=== PATIENT | female | born 1935 | race Caucasian/White ===

== ENCOUNTER 2016-11-18 09:36 | Outpatient (CLI) | payer MEDICARE, OTHER ==
--- NOTE | 2016-11-18 11:19 | PRG ---
DATE OF SERVICE: 11/18/2016 HISTORY: Ms. Eula Mallory is a very pleasant 81-year-old who presents to the Wound Center for ev aluation of ulcerations of the right and left lower legs. The patient was recently admitted to [facility] where she underwent surgery for a left femoral neck fracture. The pat ient was subsequently discharged to [place]. Since the patient's last visit, Ms. Mallory has been discharged from [place] and she is now residing at [facility]. Ms. Mallory has no complaints tod ay. She denies any fever or chills. PHYSICAL EXAMINATION: VITAL SIGNS: Temperature 97.6, pulse 72, respirations 18, blood pressure 97/54. EXTREMITIES: An ulceration of the right lower leg is present which measures approximately 1.7 x 0.6 cm. An ulceration is present over the left lower leg which measures approximately 2.1 x 0.9 cm. T he dimensions of these wounds at the time of the patient's last visit were 2.0 x 1.4 cm and 3.0 x 1. 0 cm, respectively. Granulation tissue is present within the margins of each wound. No purulent dr maryse is associated with either wound. No cellulitis of the right or left lower extremity is appre ciated. No maceration of the skin of the right or left lower extremity is present. No significant edema of the right or left lower extremity is present on exam today. ASSESSMENT AND PLAN: 1. Varicose veins with ulcers and inflammation. The patient has completed courses of treatment wit h Apligraf for her ulcerations. The patient has also undergone venous ablation on the right and on the left by Dr. Chandler Meyer. Dressing changes of Adaptic, Kerlix, and Kavin bandages will be continued 2 times per week after cleansing and irrigation with the assistance of Home Health at [facility]. I will see Ms. Mallory again in 3 weeks. 2. Gastroesophageal reflux disease. 3. History of erythema nodosum. 4. Scoliosis.
[2016-11-18] MEDS ORDERED: Sodium Chloride 0.9% 15 ML NEB ONE (16:19)
== END 2016-11-18 09:37 | disposition home or self-care (01) ==
LOC: WCC 09:36
PROVIDERS: ATTEND Family Medicine
DX: I83.209 Varicose veins of unspecified lower extremity with both ulcer of unspecified site and inflammation (principal); K21.9 Gastro-esophageal reflux disease without esophagitis; M41.9 Scoliosis, unspecified
CPT/HCPCS: 97602; A4218

== ENCOUNTER 2016-12-09 09:23 | Outpatient (CLI) | payer MEDICARE, OTHER ==
--- NOTE | 2016-12-09 12:14 | PRG ---
DATE OF SERVICE: 12/09/2016 HISTORY: Ms. Eula Mallory is a very pleasant 81-year-old who presents to the Wound Center for ev aluation of ulcerations of the right and left lower legs. The patient was recently admitted to [facility] where she underwent surgery for left femoral neck fracture. The patie nt was subsequently discharged to [place]. After discharge from [place], the patient has been r esiding at [facility]. Ms. Mallory has no complaints today. She denies any fever or chills. PHYSICAL EXAMINATION: VITAL SIGNS: Temperature 97.5, pulse 60, respirations 18, blood pressure 122/57. EXTREMITIES: An ulceration is present over the left lower leg which measures approximately 2.7 x 0. 8 cm. The dimensions of this wound at the time of the patient's last visit were approximately 2.1 x 0.9 cm. Four small ulcerations are present over the right lower leg. Granulation tissue is presen t within the margins of each wound. No purulent drainage is associated with any of the wounds. No cellulitis of the right or left lower extremity is appreciated. No maceration of the skin of the ri ght or left lower extremity is present. A dorsalis pedis pulse is palpable on the right and on the left. No significant edema of the right or left lower extremity is present on exam today. ASSESSMENT AND PLAN: 1. Varicose veins with ulcers and inflammation. The patient has completed courses of treatment wit h Apligraf for her ulcerations. The patient has also undergone venous ablation on the right and on the left by Dr. Chandler Meyer. Dressing changes of Adaptic, Kerlix, and Kavin bandages will be continued 2 times per week after cleansing and irrigation with the assistance of Home Health at [facility]. I will see Ms. Mallory again in two weeks. 2. Gastroesophageal reflux disease. 3. History of erythema nodosum. 4. Scoliosis.
[2016-12-09] MEDS ORDERED: Sodium Chloride 0.9% 15 ML NEB ONE (17:30)
[2016-12-09] MEDS ORDERED: Lidocaine 2% Jelly 5 ML TUBE ONE (17:30)
== END 2016-12-09 09:24 | disposition home or self-care (01) ==
LOC: WCC 09:23
PROVIDERS: ATTEND Family Medicine
DX: I83.209 Varicose veins of unspecified lower extremity with both ulcer of unspecified site and inflammation (principal); K21.9 Gastro-esophageal reflux disease without esophagitis; M41.9 Scoliosis, unspecified
CPT/HCPCS: 97602; A4218

== ENCOUNTER 2017-01-13 09:26 | Outpatient (CLI) | payer MEDICARE, OTHER ==
--- NOTE | 2017-01-13 11:01 | PRG ---
DATE OF SERVICE: 01/13/2017 HISTORY: Ms. Eula Mallory is a very pleasant 81-year-old who presents to the Wound Center for ramón luation of ulcerations of the right and left lower legs. The patient was recently admitted to [facility] where she underwent surgery for left femoral neck fracture. The patient was subsequently discharged to [place]. After discharge from [place], the patient has been resid ing at [facility]. Ms. Mallory has no complaints today. She denies any fever or chills. PHYSICAL EXAMINATION: VITAL SIGNS: Temperature 97.8, pulse 65, respirations 16, blood pressure 118/58. EXTREMITIES: An ulceration is present over the left lower leg, which measures approximately 2.2 x 1. 0 cm. The dimensions of the wound at the time of the patient's last visit were approximately 2.2 x 0 .8 cm. Multiple small ulcerations are present over the right lower leg. Granulation tissue is prese nt within the margins of each wound. No purulent drainage is associated with any of the wounds. No cellulitis of the right or left lower extremity is present. No maceration of the skin of the right o r left lower extremity is present. A dorsalis pedis pulse is palpable on the right and on the left. No significant edema of the right or left lower extremity is present on exam today. ASSESSMENT AND PLAN: 1. Varicose veins with ulcers and inflammation. The patient has completed courses of treatment with Apligraf for her ulcerations. The patient has also undergone venous ablation on the right and on left by Dr. Chandler Meyer. Dressing changes of Adaptic, Kerlix, and Kavin bandages will be continued 2 t imes per week after cleansing and irrigation with the assistance of Home Health at [facility]. I w ill see Ms. Mallory again in two weeks. 2. Gastroesophageal reflux disease. 3. History of erythema nodosum. 4. Scoliosis.
[2017-01-13] MEDS ORDERED: Sodium Chloride 0.9% 15 ML NEB ONE (17:21)
== END 2017-01-13 09:27 | disposition home or self-care (01) ==
LOC: WCC 09:26
PROVIDERS: ATTEND Family Medicine
DX: I83.209 Varicose veins of unspecified lower extremity with both ulcer of unspecified site and inflammation (principal); K21.9 Gastro-esophageal reflux disease without esophagitis; M41.9 Scoliosis, unspecified; Z87.2 Personal history of diseases of the skin and subcutaneous tissue
CPT/HCPCS: 97602; A4218

== ENCOUNTER 2017-01-27 09:45 | Outpatient (CLI) | payer MEDICARE, OTHER ==
--- NOTE | 2017-01-27 12:06 | PRG ---
DATE OF SERVICE: 01/27/2017 HISTORY: Ms. Eula Mallory is a very pleasant 81-year-old who presents to the Wound Center for ramón luation of ulcerations of the right and left lower legs. The patient was recently admitted to [facility] where she underwent surgery for left femoral neck fracture. The patient was subsequently discharged to [place]. After discharge from [place] the patient has been residi ng at [facility]. The patient has no complaints today. She denies any fever or chills. PHYSICAL EXAMINATION: VITAL SIGNS: Temperature 98.0, pulse 63, respirations 17, blood pressure 118/58. EXTREMITIES: An ulceration is present over the left lower leg which measures approximately 2.0 x 0.9 cm. The dimensions of the wound at the time of the patient's last visit were approximately 2.2 x 1. 0 cm. Two small ulcerations are present over the right lower leg. Granulation tissue is present wit hin the margins of each wound. No purulent drainage is associated with any of the wounds. No cellul itis of the right or left lower extremity is present. No maceration of the skin of the right or left lower extremity is present. No significant edema of the right or left lower extremity is present on exam today. ASSESSMENT AND PLAN: 1. Varicose veins with ulcers and inflammation. The patient has completed courses of treatment with Apligraf for her ulcerations. The patient has also undergone venous ablation on the right and on left by Dr. Chandler Meyer. Dressing changes of Adaptic, 4 x 4's, Kerlix, and Kavin bandages will be cont inued 2 times per week after cleansing and irrigation with the assistance of Home Health at [facility]. I will see Ms. Mallory are again in 4 weeks. 2. Gastroesophageal reflux disease. 3. History of erythema nodosum. 4. Scoliosis.
[2017-01-27] MEDS ORDERED: Sodium Chloride 0.9% 15 ML NEB ONE (21:15)
== END 2017-01-27 09:46 | disposition home or self-care (01) ==
LOC: WCC 09:45
PROVIDERS: ATTEND Family Medicine
DX: I83.228 Varicose veins of left lower extremity with both ulcer of other part of lower extremity and inflammation (principal); I83.218 Varicose veins of right lower extremity with both ulcer of other part of lower extremity and inflammation; L97.829 Non-pressure chronic ulcer of other part of left lower leg with unspecified severity; L97.819 Non-pressure chronic ulcer of other part of right lower leg with unspecified severity; K21.9 Gastro-esophageal reflux disease without esophagitis; M41.9 Scoliosis, unspecified; Z87.2 Personal history of diseases of the skin and subcutaneous tissue
CPT/HCPCS: 29581; A4218

== ENCOUNTER 2017-02-24 09:18 | Outpatient (CLI) | payer MEDICARE, OTHER ==
--- NOTE | 2017-02-24 11:55 | PRG ---
DATE OF SERVICE: 02/24/2017 HISTORY: Ms. Eula Mallory is a very pleasant 82-year-old who presents to the Wound Center for ramón luation of ulcerations of the right and left lower legs. The patient was previously admitted to [facility] where she underwent surgery for a left femoral neck fracture. The lyndsey ent was subsequently discharged to [place]. After discharge from [place], the patient has been r esiding at [facility]. Reports has no complaints today. She denies any fever or chills. OBJECTIVE: VITAL SIGNS: Temperature 97.6, pulse 64, respirations 18, blood pressure 161/83. EXTREMITIES: An ulceration is present over the left lower leg which measures approximately 1.9 x 0.9 cm. The dimensions of the wound at the time of the patient's last visit were approximately 2.0 x 0. 9 cm. Two small ulcerations are present over the right lower leg. Granulation tissue is present wit hin the margins of each wound. No purulent drainage is associated with any of the wounds. No cellul itis of the right or left lower extremity is present. No maceration of the skin of the right or left lower extremity is present. A dorsalis pedis pulse is palpable on the right. A posterior tibial pu lse is palpable on the left. Mild to moderate edema of the right and left lower extremities is prese nt on exam today. ASSESSMENT AND PLAN: 1. Varicose veins with ulcers and inflammation. The patient has completed courses of treatment with Apligraf for her ulcerations. The patient has also undergone venous ablation on the right and on left by Dr. Chandler Myeer. Dressing changes of Xeroform gauze, 4 x 4's, Kerlix, and Kavin bandages are t o be performed 2 times per week after cleansing and irrigation with the assistance of Home Health at [facility]. I will see Ms. Mallory again in four weeks. 2. Gastroesophageal reflux disease. 3. History of erythema nodosum. 4. Scoliosis.
== END 2017-02-24 09:19 | disposition home or self-care (01) ==
LOC: WCC 09:18
PROVIDERS: ATTEND Family Medicine
DX: I83.209 Varicose veins of unspecified lower extremity with both ulcer of unspecified site and inflammation (principal); K21.9 Gastro-esophageal reflux disease without esophagitis; M41.9 Scoliosis, unspecified; Z87.2 Personal history of diseases of the skin and subcutaneous tissue
CPT/HCPCS: 97602

== ENCOUNTER 2017-03-24 09:51 | Outpatient (CLI) | payer MEDICARE, OTHER ==
--- NOTE | 2017-03-24 11:42 | PRG ---
DATE OF SERVICE: 03/24/2017 HISTORY: Ms. Eula Mallory is a very pleasant 82-year-old who presents to the Wound Center for ramón luation of ulcerations of the right and left lower legs. The patient was previously admitted to [facility] where she underwent surgery for left femoral neck fracture. The patien t was subsequently discharged to [place]. After discharged from [place], the patient has been re siding at [facility] The patient has no complaints today. She denies any fever or chills. PHYSICAL EXAMINATION: VITAL SIGNS: Temperature 98.2, pulse 80, respirations 18, blood pressure 141/77. EXTREMITIES: Ulceration is present over the left lower leg which measures approximately 1.8 x 0.9 cm . The dimensions of the wound at the time of the patient's last visit were approximately 1.9 x 0.9 c m. Two small ulcerations are present over the right lower leg. No purulent drainage is associated w ith any of the wounds. No cellulitis of the right or left lower extremity is present. No maceration of the skin of the right or left lower extremity is present. Mild to moderate edema of the right an d left lower extremities is present on exam today. ASSESSMENT AND PLAN: 1. Varicose veins with ulcers and inflammation. The patient has completed courses of treatment with Apligraf for her ulcerations. The patient has also undergone venous ablation on the right and on left by Dr. Chandler Meyer. Dressing changes of Xeroform gauze, 4 x 4's, Kerlix, and Kavin bandages are t o be continued 2 times per week after cleansing and irrigation with the assistance of Home Health at [facility] Webril will be used as needed at the time of dressing changes. I will see Ms. Mallory again in four weeks. 2. Gastroesophageal reflux disease. 3. History of erythema nodosum. 4. Scoliosis.
== END 2017-03-24 09:52 | disposition home or self-care (01) ==
LOC: WCC 09:51
PROVIDERS: ATTEND Family Medicine
DX: I83.228 Varicose veins of left lower extremity with both ulcer of other part of lower extremity and inflammation (principal); K21.9 Gastro-esophageal reflux disease without esophagitis; M41.9 Scoliosis, unspecified
CPT/HCPCS: 97602

== ENCOUNTER 2017-04-21 09:28 | Outpatient (CLI) | payer MEDICARE, OTHER ==
--- NOTE | 2017-04-21 11:32 | PRG ---
DATE OF SERVICE: 04/21/2017 HISTORY: Ms. Eula Mallory is a very pleasant 82-year-old, who presents to the Wound Center for ev aluation of ulcerations of the right and left lower legs. The patient was previously admitted to [facility] where she underwent surgery for left femoral neck fracture. The patie nt was subsequently discharged to [place]. After discharge from [place], the patient has been re siding at [facility]. Ms. Mallory has no complaints today. She denies any fever or chills. PHYSICAL EXAMINATION: VITAL SIGNS: Temperature 97.4, pulse 60, respirations 17, and blood pressure 185/81. EXTREMITIES: An ulceration is present over the left lower leg, which measures approximately 1.6 x 0. 9 cm. The dimensions of the wound at the time of the patient's last visit were approximately 1.8 x 0 .9 cm. Only one small ulceration is present over the right lower leg, which measures approximately 0 .3 x 0.3 cm. No purulent drainage is associated with any of the wounds. No cellulitis of the right or left lower extremity is present. No maceration of the skin of the right or left lower extremity i s present. No significant edema of the right or left lower extremities is present on exam today. ASSESSMENT AND PLAN: 1. Varicose veins with ulcers and inflammation. The patient has completed courses of treatment with Apligraf for her ulcerations. The patient has also undergone venous ablation on the right and on left by Dr. Chandler Meyer. Dressing changes of Xeroform gauze, 4 x 4's or an ABD, Kerlix, and an Kavin b andage are to be continued 2 times per week after cleansing and irrigation with the assistance of [facility] [employer] at [facility]. For the ulceration of the right lower leg, the patient is to receive dress ing changes of Xeroform gauze and bordered gauze also 2 times per week after cleansing and irrigation with the assistance of [facility]. Orders will be transmitted to [facility] that an Kavin bandage m ay be utilized as needed for edema of the right lower extremity. I will see Ms. Mallory again in four weeks. 2. Gastroesophageal reflux disease. 3. History of erythema nodosum. 4. Scoliosis.
== END 2017-04-21 09:29 | disposition home or self-care (01) ==
LOC: WCC 09:28
PROVIDERS: ATTEND Family Medicine
DX: I83.209 Varicose veins of unspecified lower extremity with both ulcer of unspecified site and inflammation (principal); K21.9 Gastro-esophageal reflux disease without esophagitis; M41.9 Scoliosis, unspecified; Z87.2 Personal history of diseases of the skin and subcutaneous tissue
CPT/HCPCS: 97602

== ENCOUNTER 2017-05-19 09:24 | Outpatient (CLI) | payer MEDICARE, OTHER ==
--- NOTE | 2017-05-19 10:46 | PRG ---
DATE OF SERVICE: 05/19/2017 HISTORY: Ms. Eula Mallory is a very pleasant 82-year-old who presents to the Wound Center for ramón luation of ulcerations of the right and left lower legs. The patient was previously admitted to [facility] where she underwent surgery for a left femoral neck fracture. The lyndsey ent was subsequently discharged to [place]. After discharge from [place], the patient has been r esiding at [facility]. The patient has no complaints today. She denies any fever or chills. PHYSICAL EXAMINATION: VITAL SIGNS: Temperature 97.4, pulse 55, respirations 18, blood pressure 186/89. EXTREMITIES: An ulceration is present over the left lower leg, which measures approximately 1.5 x 0. 7 cm. The dimensions of the wound at the time of the patient's visit on 04/21/2017 were approximatel y 1.6 x 0.9 cm. Granulation tissue is present within the wound margins. No purulent drainage is ass ociated with the wound. No cellulitis of the left lower extremity is present. No maceration of the skin of the left lower extremity is present. No significant edema of the left lower extremity is pre sent on exam today. ASSESSMENT AND PLAN: 1. Varicose veins with ulcers and inflammation. The patient has undergone courses of treatment with Apligraf for her ulcerations. The patient has also undergone venous ablation on the right and on left by Dr. Chandler Meyer. Dressing changes of Xeroform gauze, Kerlix, and an Kavin bandage will be cont inued 2 times per week after cleansing and irrigation with the assistance of Home Health at [facility]. I will see Ms. Mallory again in four weeks. 2. Gastroesophageal reflux disease. 3. History of erythema nodosum. 4. Scoliosis.
== END 2017-05-19 09:25 | disposition home or self-care (01) ==
LOC: WCC 09:24
PROVIDERS: ATTEND Family Medicine
DX: I83.228 Varicose veins of left lower extremity with both ulcer of other part of lower extremity and inflammation (principal); L97.829 Non-pressure chronic ulcer of other part of left lower leg with unspecified severity; K21.9 Gastro-esophageal reflux disease without esophagitis; M41.9 Scoliosis, unspecified; Z87.2 Personal history of diseases of the skin and subcutaneous tissue
CPT/HCPCS: 97602

== ENCOUNTER 2017-06-16 08:43 | Outpatient (CLI) | payer MEDICARE, OTHER ==
--- NOTE | 2017-06-16 10:35 | PRG ---
DATE OF SERVICE: 06/16/2017 HISTORY: Ms. Eula Mallory is a very pleasant 82-year-old who presents to the Wound Center for evaluation of ulcerations of the right and left lower legs. The patient was previously admitted to [facility] where she underwent surgery for a left femoral neck fracture. The p atient was subsequently discharged to [place]. After discharged from [place], the patient has be en residing at [facility]. The patient has no complaints today. She denies any fever or chills. PHYSICAL EXAMINATION: VITAL SIGNS: Temperature 97.9, pulse 54, respirations 17, and blood pressure 164/77. EXTREMITIES: An ulceration is present over the left medial lower leg which measures approximately 1. 2 x 0.6 cm. The dimensions of the wound at the time of the patient's visit 05/19/2017 were approxima tely 1.5 x 0.7 cm. Granulation tissue is present within the wound margins. No purulent drainage is associated with the wound. No cellulitis of the left lower extremity is present. No maceration of t skin of the left lower extremity is present. No significant edema of the left lower extremity is present on exam today. ASSESSMENT AND PLAN: 1. Varicose veins with ulcers and inflammation. The patient has undergone courses of treatment with Apligraf for her ulcerations. The patient has also undergone venous ablation on the right and on left by Dr. Chandler Meyer. Dressing changes of Xeroform gauze, bordered gauze and the patient's stocki wilbur will be continued 2 times per week after cleansing and irrigation with the assistance of [facility] at [facility]. I will see Ms. Mallory again in 6 weeks. 2. Gastroesophageal reflux disease. 3. History of erythema nodosum. 4. Scoliosis.
[2017-06-16] MEDS ORDERED: Lidocaine 2% Jelly 5 ML TUBE ONE (15:34)
[2017-06-16] MEDS ORDERED: Sodium Chloride 0.9% 15 ML NEB ONE (15:34)
== END 2017-06-16 08:44 | disposition home or self-care (01) ==
LOC: WCC 08:43
PROVIDERS: ATTEND Family Medicine
DX: I83.228 Varicose veins of left lower extremity with both ulcer of other part of lower extremity and inflammation (principal); L97.929 Non-pressure chronic ulcer of unspecified part of left lower leg with unspecified severity; K21.9 Gastro-esophageal reflux disease without esophagitis; M41.9 Scoliosis, unspecified
CPT/HCPCS: 97602; A4218

== ENCOUNTER 2017-07-21 09:33 | Outpatient (CLI) | payer MEDICARE, OTHER ==
--- NOTE | 2017-07-21 11:24 | PRG ---
DATE OF SERVICE: 07/21/2017 HISTORY: Ms. Eula Mallory is a very pleasant 82-year-old who presents to the Wound Center for evaluation of ulcerations of the right and left lower legs. The patient was previously admitted to [facility] where she underwent surgery for left femoral neck fracture. patient was subsequently discharged to [place]. After discharged from [place], the patient has been residing at [facility]. The patient is receiving assistance with dressing changes by [facility]. The patient reports significant drainage from a new ulceration of the left posterior lower leg . PHYSICAL EXAMINATION: VITAL SIGNS: Temperature 97.9, pulse 59, respirations 17, blood pressure 144/69. EXTREMITIES: A new ulceration is present over the left posterior lower leg associated with serous dr serra. An ulceration over the left medial lower leg is present which measures approximately 2.0 x 0 .9 cm. Granulation tissue is present within the wound margins. No purulent drainage is associated w ith the wound. No cellulitis of the left lower leg is appreciated. No maceration of the skin of the periwound is noted. A dorsalis pedis pulse is palpable on the left. Edema of the left lower extrem ity is present on exam today. ASSESSMENT AND PLAN: 1. Varicose veins with ulcers and inflammation. The patient has undergone courses of treatment with Apligraf for her ulcerations. The patient has also undergone venous ablation on the right and on left by Dr. Chandler Meyer. For the ulcerations of the left lower leg, patient is to receive dressing c hanges of Xeroform gauze, ABD, Webril, and 3M Coban 2 layer compression system two times per week aft er cleansing and irrigation with the assistance of Home Health at [facility]. I have also asked patient to keep her left lower extremity elevated as much as possible. I will see Ms. Mallory again in two weeks. The patient states that one of the wounds of her left lower leg was recently cultured by Dr. Goode. These results will be obtained. The patient is to continue p.o. antibiotics as previ ously prescribed. 2. Gastroesophageal reflux disease. 3. History of erythema nodosum. 4. Scoliosis.
[2017-07-21] MEDS ORDERED: Sodium Chloride 0.9% 15 ML NEB ONE (12:00)
[2017-07-21] MEDS ORDERED: Lidocaine 2% Jelly 5 ML TUBE ONE (12:00)
== END 2017-07-21 09:34 | disposition home or self-care (01) ==
LOC: WCC 09:33
PROVIDERS: ATTEND Family Medicine
DX: I83.209 Varicose veins of unspecified lower extremity with both ulcer of unspecified site and inflammation (principal); L97.929 Non-pressure chronic ulcer of unspecified part of left lower leg with unspecified severity; L97.919 Non-pressure chronic ulcer of unspecified part of right lower leg with unspecified severity; K21.9 Gastro-esophageal reflux disease without esophagitis; M41.9 Scoliosis, unspecified
CPT/HCPCS: 97602; A4218

== ENCOUNTER 2017-08-04 09:22 | Outpatient (CLI) | payer MEDICARE, OTHER ==
--- NOTE | 2017-08-04 10:39 | PRG ---
DATE OF SERVICE: 08/04/2017 HISTORY: Ms. Eula Mallory is a very pleasant 82-year-old who presents to the Wound Center for evaluation of ulcerations of the right and left lower legs. The patient was previously admitted to [facility] where she underwent surgery for left femoral neck fracture. The patient was subsequently discharged to [place]. After discharged from [place], the patient has been residing at [facility]. The patient continues to receive assistance with dressing changes by Home Health. The patient denies any fever or chills. PHYSICAL EXAMINATION: VITAL SIGNS: Temperature 98.1, pulse 61, respirations 16, blood pressure 139/63. EXTREMITIES: An ulceration over the left medial lower leg is present which measures approximately 2. 0 x 0.8 cm. The dimensions of the wound at the time of the patient's last visit were approximately 2 .0 x 0.9 cm. Granulation tissue is present within the wound margins. No purulent drainage is associ ated with the wound. No cellulitis of the left lower leg is appreciated. No maceration of the skin of the periwound is noted. No significant edema of the left lower leg is present on exam today. ASSESSMENT AND PLAN: 1. Varicose veins with ulcers and inflammation. The patient has undergone courses of treatment with Apligraf for her ulcerations. The patient has also undergone venous ablation on the right and on left by Dr. Chandler Meyer. For the ulceration of the left lower leg, the patient is to receive dressin g changes of Xeroform gauze, ABD, Webril, and 3M Coban 2 layer compression system two times per week after cleansing and irrigation with the assistance of Home Health at [facility]. I will see Ms. Harley armando again in two weeks. 2. Gastroesophageal reflux disease. 3. History of erythema nodosum. 4. Scoliosis.
[2017-08-04] MEDS ORDERED: Sodium Chloride 0.9% 15 ML NEB ONE (18:59)
[2017-08-04] MEDS ORDERED: Lidocaine 2% Jelly 5 ML TUBE ONE (18:59)
== END 2017-08-04 09:23 | disposition home or self-care (01) ==
LOC: WCC 09:22
PROVIDERS: ATTEND Family Medicine
DX: I83.228 Varicose veins of left lower extremity with both ulcer of other part of lower extremity and inflammation (principal); K21.9 Gastro-esophageal reflux disease without esophagitis; M41.9 Scoliosis, unspecified; Z87.2 Personal history of diseases of the skin and subcutaneous tissue
CPT/HCPCS: A4218

== ENCOUNTER 2017-08-25 10:23 | Outpatient (CLI) | payer MEDICARE, OTHER ==
--- NOTE | 2017-08-25 12:18 | PRG ---
DATE OF SERVICE: 08/25/2017 HISTORY: Ms. Eula Mallory is a very pleasant 82-year-old accompanied by her daughter, who present s to the Wound Center for evaluation of an ulceration of the left medial lower leg. The patient was previously admitted to [facility] where she underwent surgery for a left femor al neck fracture. The patient was subsequently discharged to [place]. After discharge from [facility], the patient has been residing at [facility]. Ms. Mallory continues to receive assistance with dressing changes by Home Health. Ms. Mallory denies any fever or chills. PHYSICAL EXAMINATION: VITAL SIGNS: Temperature 97.9, pulse 68, respirations 19, and blood pressure 168/76. EXTREMITIES: An ulceration over the left medial lower leg is present, which measures approximately 1 .8 x 0.8 cm. The dimensions of the wound at the time of the patient's last visit were approximately 08/04/2017. Granulation tissue is present within the wound margins. No purulent drainage is associa ciera with the wound. The cellulitis of the left lower leg is appreciated. No maceration of the skin of the periwound is noted. Mild to moderate edema of the left foot and lower leg is present on exam today. ASSESSMENT AND PLAN: 1. Varicose veins with ulcers and inflammation. The patient has undergone courses of treatment with Apligraf for her ulcerations. The patient has also undergone venous ablation on the right and on left by Dr. Chandler Meyer. Only one ulceration of the left medial lower leg remains. For this ulcerat ion, the patient is to receive dressing changes of Medihoney, gauze, Webril, and 3M Coban 2 layer com pression system two times per week after cleansing and irrigation with the assistance of Home Health at [facility]. I will see Ms. Mallory again in 5 weeks. 2. Lymphedema tarda. Arrangements will be initiated for in-home lymphedema therapy with a pneumatic pump. 3. Gastroesophageal reflux disease. 4. History of erythema nodosum. 5. Scoliosis.
== END 2017-08-25 10:24 | disposition home or self-care (01) ==
LOC: WCC 10:23
PROVIDERS: ATTEND Family Medicine
DX: I83.228 Varicose veins of left lower extremity with both ulcer of other part of lower extremity and inflammation (principal); L97.929 Non-pressure chronic ulcer of unspecified part of left lower leg with unspecified severity; I89.0 Lymphedema, not elsewhere classified; K21.9 Gastro-esophageal reflux disease without esophagitis; M41.9 Scoliosis, unspecified; Z87.2 Personal history of diseases of the skin and subcutaneous tissue
CPT/HCPCS: 97602

== ENCOUNTER 2017-09-29 10:32 | Outpatient (CLI) | payer MEDICARE, OTHER ==
--- NOTE | 2017-09-29 12:13 | PRG ---
DATE OF SERVICE: 09/29/2017 HISTORY: Ms. Eula Malolry is a very pleasant 82-year-old who presents to the Wound Center for ramón luation of an ulceration of the left medial lower leg. The patient was previously admitted to [facility] where she underwent surgery for a left femoral neck fracture. The patien t was subsequently discharged to [place]. After discharge from [place], the patient has been res iding at [facility]. Ms. Mallory continues to receive assistance with dressing changes by [facility] . Ms. Mallory has no complaints today. She denies any fever or chills. PHYSICAL EXAMINATION: VITAL SIGNS: Temperature 97.8, pulse 62, respirations 21, blood pressure 134/75. EXTREMITIES: An ulceration over the left medial lower leg is present which measures approximately 1. 7 x 0.6 cm. The dimensions of the wound at the time of the patient's last visit were approximately 1 .8 x 0.8 cm. Granulation tissue is present within the wound margins. No purulent drainage is associ ated with the wound. No cellulitis of the left lower leg is appreciated. No maceration of the skin of the periwound is noted. No significant edema of the left foot or lower leg is present on exam tod ay. ASSESSMENT AND PLAN: 1. Varicose veins with ulcers and inflammation. The patient has undergone courses of treatment with Apligraf for her ulcerations. The patient has also undergone venous ablation on the right and on e left by Dr. Chandler Meyer, only 1 ulceration of the left medial lower leg remains. For this ulceration , the patient is to receive dressing changes of Medihoney, gauze, Webril, and 3M Coban 2-layer compre ssion system two times per week after cleansing and irrigation with the assistance of Home Health at [facility]. I will see Ms. Mallory again in 5 weeks. 2. Lymphedema tarda stage 2. The patient declines treatment with a pneumatic pump. She will contin ue to receive dressing changes of the 3M Coban 2-layer compression system 2 times per week. 3. Gastroesophageal reflux disease. 4. History of erythema nodosum. 5. Scoliosis.
[2017-09-29] MEDS ORDERED: Sodium Chloride 0.9% 15 ML NEB ONE (16:28)
[2017-09-29] MEDS ORDERED: Lidocaine 2% Jelly 5 ML TUBE ONE (16:28)
== END 2017-09-29 10:33 | disposition home or self-care (01) ==
LOC: WCC 10:32
PROVIDERS: ATTEND Family Medicine
DX: I83.228 Varicose veins of left lower extremity with both ulcer of other part of lower extremity and inflammation (principal); L97.929 Non-pressure chronic ulcer of unspecified part of left lower leg with unspecified severity; I89.0 Lymphedema, not elsewhere classified; K21.9 Gastro-esophageal reflux disease without esophagitis; M41.9 Scoliosis, unspecified
CPT/HCPCS: A4218

== ENCOUNTER 2017-11-07 13:44 | Outpatient (CLI) | payer MEDICARE, OTHER ==
[~2017-11-07 13:44] MED LIST: Sodium Chloride 0.9% 15 ML NEB ONE
--- NOTE | 2017-11-07 15:13 | PRG ---
DATE OF SERVICE: 11/07/2017 HISTORY: Ms. Eula Mallory is a very pleasant 82-year-old, who presents to the Wound Center for ev aluation of an ulceration of the left medial lower leg. The patient was previously admitted to [facility] where she underwent surgery for left femoral neck fracture. The patient was subsequently discharged to [place]. After discharge from [place], the patient has been resi ding at [facility]. Ms. Mallory continues to receive assistance with dressing changes by [facility] . The patient has no complaints today. She denies any fever or chills. PHYSICAL EXAMINATION: VITAL SIGNS: Temperature 97.7, pulse 57, and respirations 18. EXTREMITIES: An ulceration over the left medial lower leg is present, which measures approximately 1 .8 x 0.5 cm. The dimensions of the wound at the time of the patient's last visit were approximately 1.7 x 0.6 cm. Granulation tissue is present within the wound margins. Nonviable tissue present with in the wound margins was debrided with an excisional full-thickness debridement with the use of sciss ors. No purulent drainage is associated with the wound. No cellulitis of the left lower leg is appr eciated. No maceration of the skin of the periwound is noted. A dorsalis pedis pulse is palpable on the left. No significant edema of the left foot or lower leg is present on exam today. After copio us irrigation of the wound bed with normal saline, Hyalomatrix was fenestrated and applied to the wou nd bed with the silicone layer facing outwards. The ulceration was then dressed with Adaptic, ABD, W ebril, and 3M Coban 2 layer compression system. ASSESSMENT AND PLAN: 1. Varicose veins with ulcers and inflammation. The patient has undergone courses of treatment with Apligraf for her ulcerations. The patient has also undergone venous ablation on the right and on left by Dr. Chandler Meyer. Only one ulceration of the left medial lower leg remains. For this ulcerat ion, Hyalomatrix was applied to the wound bed today. Orders will be transmitted to Home Health for t he dressings applied in clinic to be left intact until the patient's followup visit. I will see Ms. Mallory again in one week. 2. Lymphedema tarda stage 2. The patient previously declined treatment with a pneumatic pump. 3. Gastroesophageal reflux disease. 4. History of erythema nodosum. 5. Scoliosis.
== END 2017-11-07 13:45 | disposition home or self-care (01) ==
LOC: WCC 13:44
PROVIDERS: ATTEND Family Medicine
DX: I83.228 Varicose veins of left lower extremity with both ulcer of other part of lower extremity and inflammation (principal); L97.829 Non-pressure chronic ulcer of other part of left lower leg with unspecified severity; K21.9 Gastro-esophageal reflux disease without esophagitis; M41.9 Scoliosis, unspecified; I89.0 Lymphedema, not elsewhere classified; Z87.2 Personal history of diseases of the skin and subcutaneous tissue
CPT/HCPCS: A4218; C5271

== ENCOUNTER 2017-11-17 09:16 | Outpatient (CLI) | payer MEDICARE, OTHER ==
[2017-11-17] MEDS ORDERED: Sodium Chloride 0.9% 15 ML NEB ONE (10:00)
--- NOTE | 2017-11-17 10:51 | PRG ---
DATE OF SERVICE: 11/17/2017 HISTORY: Ms. Eula Mallory is a very pleasant 82-year-old who presents to the Wound Center for ramón luation of an ulceration of the left medial lower leg. The patient was previously admitted to [facility] where she underwent surgery for left femoral neck fracture. The patient was subsequently discharged to [place]. After discharged from [place], the patient has been resi ding at [facility]. The patient continues to receive assistance with dressing changes by [facility]. The patient has no complaints today. She denies any fever or chills. PHYSICAL EXAMINATION: VITAL SIGNS: Temperature 97.5, pulse 50, respirations 19, blood pressure 174/79. EXTREMITIES: Ulceration over the left medial lower leg is still present. Granulation tissue is pres ent within the wound margins. Nonviable tissue present within the wound margins was debrided with an excisional full-thickness debridement. No purulent drainage is associated with the wound. No cellu litis of the left lower leg is appreciated. No maceration of the skin of the periwound is noted. No significant edema of the left foot or lower leg is present on exam today. After copious irrigation of the wound bed with normal saline, Hyalomatrix was fenestrated and applied to the wound bed with th e silicone layer facing outwards. The ulceration was then dressed with Adaptic, ABD, Webril, and 3M Coban 2 layer compression system. ASSESSMENT AND PLAN: 1. Varicose veins with ulcers and inflammation. The patient has undergone courses of treatment with Apligraf for her ulcerations. The patient has also undergone venous ablation on the right and on th e left by Dr. Chandler Meyer. Only 1 ulceration of the left medial lower leg remains. For this ulceratio n, kassidy matrix was applied to the wound bed today. Orders will be transmitted to Home Health for the dressings applied in clinic to be left intact until the patient's followup visit. I will see Ms. Harley armando again in one week. 2. Lymphedema tarda stage 2. The patient previously declined treatment with a pneumatic pump. 3. Gastroesophageal reflux disease. 4. History of erythema nodosum. 5. Scoliosis.
== END 2017-11-17 09:17 | disposition home or self-care (01) ==
LOC: WCC 09:16
PROVIDERS: ATTEND Family Medicine
DX: I83.228 Varicose veins of left lower extremity with both ulcer of other part of lower extremity and inflammation (principal); L97.929 Non-pressure chronic ulcer of unspecified part of left lower leg with unspecified severity; K21.9 Gastro-esophageal reflux disease without esophagitis; I89.0 Lymphedema, not elsewhere classified; M41.9 Scoliosis, unspecified; Z87.2 Personal history of diseases of the skin and subcutaneous tissue
CPT/HCPCS: A4218

== ENCOUNTER 2017-11-24 11:17 | Outpatient (CLI) | payer MEDICARE, OTHER ==
--- NOTE | 2017-11-24 12:27 | PRG ---
DATE OF SERVICE: 11/24/2017 HISTORY: Ms. Eula Mallory is a very pleasant 82-year-old who presents to the Wound Center for ramón luation of an ulceration of the left medial lower leg. The patient was previously admitted to [facility] where she underwent surgery for left femoral neck fracture. The patient was subsequently discharged to [place]. After discharge from [place], the patient has been resid ing at [facility]. The patient continues to receive assistance with dressing changes by [facility]. The patient has no complaints today. She denies any fever or chills. The patient is presently r eceiving treatment with Hyalomatrix for the left medial lower leg ulceration. PHYSICAL EXAMINATION: VITAL SIGNS: Temperature 97.6, pulse 66, respirations 17, blood pressure 130/70. EXTREMITIES: The ulceration over the left medial lower leg is still present. The dimensions of the wound are approximately 0.4 x 0.2 cm. Granulation tissue is present within the wound margins. Nonvi able tissue present within the wound margins was debrided with an excisional full-thickness debrideme nt. No purulent drainage is associated with the wound. No cellulitis of the left lower leg is appre ciated. No maceration of the skin of the periwound is noted. No significant edema of the left foot or lower leg is present on exam today. After copious irrigation of the wound bed with normal saline, a portion of the Hyalomatrix applied to the wound bed at the time of the patient's last visit was re applied to the wound bed with the silicone layer facing outwards. The ulceration was then dressed wi th Adaptic, 4 x 4s, Webril, and 3M Coban 2-layer compression system. ASSESSMENT AND PLAN: 1. Varicose veins with ulcers and inflammation. The patient has undergone courses of treatment with Apligraf for her ulcerations. The patient has also undergone venous ablation on the right and on left by Dr. Chandler Meyer, only 1 ulceration of the left medial lower leg remains for which the patient is receiving treatment with Hyalomatrix. Orders will be transmitted to home health for a dressing c hange in one week. The Adaptic is to be left intact at the time of the dressing change. I will see Ms. Mallory again in two weeks. 2. Lymphedema tarda stage 2. The patient previously declined treatment with a pneumatic pump. 3. Gastroesophageal reflux disease. 4. History of erythema nodosum. 5. Scoliosis.
== END 2017-11-24 11:18 | disposition home or self-care (01) ==
LOC: WCC 11:17
PROVIDERS: ATTEND Family Medicine
DX: I83.228 Varicose veins of left lower extremity with both ulcer of other part of lower extremity and inflammation (principal); L97.929 Non-pressure chronic ulcer of unspecified part of left lower leg with unspecified severity; I89.0 Lymphedema, not elsewhere classified; K21.9 Gastro-esophageal reflux disease without esophagitis; M41.9 Scoliosis, unspecified; Z87.2 Personal history of diseases of the skin and subcutaneous tissue
CPT/HCPCS: 29581

== ENCOUNTER 2017-12-08 09:29 | Outpatient (CLI) | payer MEDICARE, OTHER ==
--- NOTE | 2017-12-08 11:17 | PRG ---
DATE OF SERVICE: 12/08/2017 HISTORY: Ms. Eula Mallory is a very pleasant 82-year-old who presents to the Wound Center for evaluation of an ulceration of the left medial lower leg. The patient was previously admitted t [facility] where she underwent surgery for a left femoral neck fracture. patient was subsequently discharged to [place]. After discharge from [place], the patient has been residing at [facility]. The patient is no longer receiving dressing changes by Home Health. Ms. Mallory has no complaints today. She denies any fever or chills. The patient is presently receiv ing treatment with Hyalomatrix for the left medial lower leg ulceration. PHYSICAL EXAMINATION: VITAL SIGNS: Temperature 97.4, pulse 64, respirations 18, blood pressure 177/79. EXTREMITIES: The ulceration over the left medial lower leg is still present. The dimensions of the wound are approximately 0.4 x 0.4 cm. Granulation tissue is present within the wound margins. Nonvi able tissue present within the wound margins was debrided with an excisional full-thickness debrideme nt. No purulent drainage is associated with the wound. No cellulitis of the left lower leg is appre ciated. No maceration of the skin of the periwound is noted. No significant edema of the left foot or lower leg is present on exam today. After copious irrigation of the wound bed with normal saline, Hyalomatrix was applied to the wound bed with the silicone layer facing outwards. The ulceration wa s then dressed with Adaptic, an ABD, Webril, and the 3M Coban 2 layer compression system. Prior to a pplication of Hyalomatrix to the wound bed, the silicone layer was fenestrated with a scalpel. ASSESSMENT AND PLAN: 1. Varicose veins with ulcers and inflammation. The patient has undergone courses of treatment with Apligraf for her ulcerations. The patient has also undergone venous ablation on the right and on left by Dr. Chandler Meyer. Only 1 ulceration of the left medial lower leg remains for which the patien t is receiving treatment with Hyalomatrix. I will see Ms. Mallory again in 2 weeks. 2. Lymphedema tarda stage 2. The patient previously declined treatment with a pneumatic pump. 3. Gastroesophageal reflux disease. 4. History of erythema nodosum. 5. Scoliosis.
[2017-12-08] MEDS ORDERED: Sodium Chloride 0.9% 15 ML NEB ONE (15:55)
== END 2017-12-08 09:30 | disposition home or self-care (01) ==
LOC: WCC 09:29
PROVIDERS: ATTEND Family Medicine
DX: I83.228 Varicose veins of left lower extremity with both ulcer of other part of lower extremity and inflammation (principal); L97.829 Non-pressure chronic ulcer of other part of left lower leg with unspecified severity; I89.0 Lymphedema, not elsewhere classified; K21.9 Gastro-esophageal reflux disease without esophagitis; M41.9 Scoliosis, unspecified; L52 Erythema nodosum
CPT/HCPCS: 97139; C5271; Q4117; A4218

== ENCOUNTER 2017-12-29 09:48 | Outpatient (CLI) | payer MEDICARE, OTHER ==
--- NOTE | 2017-12-29 11:20 | PRG ---
DATE OF SERVICE: 12/29/2017 HISTORY: Ms. Eula Mallory is a very pleasant 82-year-old who presents to the Wound Center for ramón luation of an ulceration of the left medial lower leg. The patient was previously admitted to [facility] where she underwent surgery for a left femoral neck fracture. The blaise taylor was subsequently discharged to [place]. After discharge from [place], the patient has been res iding at [facility] The patient has no complaints today. She denies any fever or chills. The pa andreas is currently receiving treatment with Hyalomatrix for the left medial lower leg ulceration. e patient also states that she is receiving physical therapy. PHYSICAL EXAMINATION: VITAL SIGNS: Temperature 97.6, pulse 65, respirations 18, blood pressure 163/73. EXTREMITIES: The ulceration over the left medial lower leg has almost healed completely. No serous or purulent drainage is associated with the wound. No cellulitis of the left lower leg is appreciate d. No maceration of the skin of the periwound is noted. No significant edema of the left foot or lo wer leg is present on exam today. After copious irrigation of the wound bed with normal saline, a po rtion of the Hyalomatrix applied to the wound bed at the time of the patient's last visit was placed over the wound bed with the silicone layer facing outward. The ulceration was then dressed with Adap tic, Webril, and 3M Coban 2 layer compression system. ASSESSMENT AND PLAN: 1. Varicose veins with ulcers and inflammation. The patient has undergone courses of treatment with Apligraf for her ulcerations. The patient has also undergone venous ablation on the right and on left by Dr. Chandler Meyer. Only 1 ulceration of the left medial lower leg remains for which the blaise taylor is receiving treatment with Hyalomatrix. I will see Ms. Mallory again in two weeks. 2. Lymphedema tarda stage 2. The patient previously declined treatment with a pneumatic pump. 3. Gastroesophageal reflux disease. 4. History of erythema nodosum. 5. Scoliosis.
[2017-12-29] MEDS ORDERED: Sodium Chloride 0.9% 15 ML NEB ONE (18:00)
== END 2017-12-29 09:49 | disposition home or self-care (01) ==
LOC: WCC 09:48
PROVIDERS: ATTEND Family Medicine
DX: I83.228 Varicose veins of left lower extremity with both ulcer of other part of lower extremity and inflammation (principal); L97.929 Non-pressure chronic ulcer of unspecified part of left lower leg with unspecified severity; I89.0 Lymphedema, not elsewhere classified; K21.9 Gastro-esophageal reflux disease without esophagitis; M41.9 Scoliosis, unspecified; Z87.2 Personal history of diseases of the skin and subcutaneous tissue
CPT/HCPCS: 29581; A4218

== ENCOUNTER 2018-01-12 09:43 | Outpatient (CLI) | payer MEDICARE, OTHER ==
[2018-01-12] MEDS ORDERED: Sodium Chloride 0.9% 15 ML NEB ONE (11:11)
--- NOTE | 2018-01-12 14:14 | PRG ---
DATE OF SERVICE: 01/12/2018 HISTORY: Ms. Eula Mallory is a very pleasant 82-year-old, who presents to the Wound Center for evaluation of an ulceration of the left medial lower leg. The patient was previously admitted to [facility], where she underwent surgery for a left femoral neck fracture. The patient was subsequently discharged to [place]. After discharge from [place], the patient has been residing at [facility]. The patient has no complaints today. She denies any fever or chills. The patient is presently receiving treatment with Hyalomatrix for the left medial lower left leg ulceration. The patient states that she is receiving physical therapy. PHYSICAL EXAMINATION: VITAL SIGNS: Temperature 97.6, pulse 67, respirations 20, blood pressure 154/70. EXTREMITIES: The ulceration over the left medial lower leg has almost healed completely. No serous or purulent drainage is associated with the wound. No cellulitis of the left lower leg is appreciated. No maceration of the skin of the periwound is noted. No significant edema of the left foot or lower leg is present on exam today. ASSESSMENT AND PLAN: 1. Varicose veins with ulcers and inflammation. The patient has undergone courses of treatment with for her ulcerations. The patient has also undergone venous ablation on the right and on the left by Dr. Chandler Meyer. The ulceration of the left medial lower leg, for which the patient also received treatment with Hyalomatrix has almost healed completely. The patient is to receive dressing changes of Mepilex Border on a weekly basis for the next 4 weeks until the wound has healed completely. Ms. Mallory will be discharged from clinic today with followup on a p.r.n. basis. The patient has been reassured that the wound has almost completely healed. She has been told that she may return to the Wound Center for any increase in the dimensions of her wound. 2. Lymphedema tarda, stage 2. The patient previously declined treatment with a pneumatic pump. 3. Gastroesophageal reflux disease. 4. History of erythema. 5. Scoliosis. Job ID: [id number]
== END 2018-01-12 09:44 | disposition home or self-care (01) ==
LOC: WCC 09:43
PROVIDERS: ATTEND Family Medicine
DX: I83.228 Varicose veins of left lower extremity with both ulcer of other part of lower extremity and inflammation (principal); L97.929 Non-pressure chronic ulcer of unspecified part of left lower leg with unspecified severity; I89.0 Lymphedema, not elsewhere classified; K21.9 Gastro-esophageal reflux disease without esophagitis; M41.9 Scoliosis, unspecified; Z87.2 Personal history of diseases of the skin and subcutaneous tissue
CPT/HCPCS: A4218

== ENCOUNTER 2018-02-17 13:55 | Outpatient (CLI) | payer MEDICARE, OTHER ==
[2018-02-17] MEDS ORDERED: Sodium Chloride 0.9% 15 ML NEB ONE (15:00)
== END 2018-02-17 13:56 | disposition home or self-care (01) ==
LOC: WCC 13:55
PROVIDERS: ATTEND Family Medicine
DX: I83.228 Varicose veins of left lower extremity with both ulcer of other part of lower extremity and inflammation (principal)
CPT/HCPCS: 97602; A4218

== ENCOUNTER 2018-03-09 13:40 | Outpatient (CLI) | payer MEDICARE, OTHER ==
--- NOTE | 2018-03-09 15:04 | PRG ---
DATE OF SERVICE: 03/09/2018 SUBJECTIVE: Ms. Eula Mlalory is a very pleasant 83-year-old who presents to the wound center for evaluation of an ulceration of the left medial lower leg. The patient was previously admitted to [facility] where she underwent surgery for a left femoral neck fracture. The patient was subsequently discharged to [place]. After discharge from [place], the patient has been residing at [facility]. The patient has no complaints today. She denies any fever or chills. The patient is presently performing dressing changes of Medihoney for her left medial lower leg ulceration. The patient states that she is no longer receiving physical therapy. OBJECTIVE: VITAL SIGNS: Temperature 97.5, pulse 77, respirations 18, and blood pressure 131/62. EXTREMITIES: The ulceration over the left medial lower leg measures approximately 0.3 x 0.2 cm. Nonviable tissue present within the wound margins was debrided with an excisional full-thickness debridement with the use of a curette. No purulent drainage is associated with the wound. No cellulitis of the left lower leg is appreciated. No maceration of the skin of the periwound is noted. No significant edema of the left foot or lower leg is present on exam today. ASSESSMENT AND PLAN: 1. Varicose veins with ulcers and inflammation. The patient has undergone courses of treatment with Apligraf for her ulcerations. The patient has also undergone venous ablation on the right and on the left by Dr. Zeina Meyer. The ulceration of the left medial lower leg, for which the patient is being seen today, has also been treated with Hyalomatrix. Dressing changes of Medihoney and gauze are to be performed on a daily basis every other day or alternatively three times per week after cleansing and irrigation for the next four weeks. The patient states she will continue to perform her own dressing changes. I will see Ms. Mallory again in 4 weeks if her wound is still present at this time. 2. Lymphedema tarda, stage II. The patient previously declined treatment with a pneumatic pump. 3. Gastroesophageal reflux disease. 4. History of erythema nodosum. 5. Scoliosis. Job ID: [id number]
[2018-03-09] MEDS ORDERED: Lidocaine 2% PF 100 mg/5 ml Syringe ONE ×2 (16:00→19:52)
[2018-03-09] MEDS ORDERED: Sodium Chloride 0.9% 15 ML NEB ONE ×2 (16:00→19:52)
== END 2018-03-09 13:41 | disposition home or self-care (01) ==
LOC: WCC 13:40
PROVIDERS: ATTEND Family Medicine
DX: I83.228 Varicose veins of left lower extremity with both ulcer of other part of lower extremity and inflammation (principal); I89.0 Lymphedema, not elsewhere classified; K21.9 Gastro-esophageal reflux disease without esophagitis; M41.9 Scoliosis, unspecified; Z87.2 Personal history of diseases of the skin and subcutaneous tissue
CPT/HCPCS: 11042; A4218; J2001

== ENCOUNTER 2018-04-06 10:55 | Outpatient (CLI) | payer MEDICARE, OTHER ==
--- NOTE | 2018-04-06 12:59 | PRG ---
DATE OF SERVICE: HISTORY: Ms. Eula Mallory is a very pleasant 83-year-old who presents to the Wound Center for evaluation of an ulceration of the left medial lower leg. The patient was previously admitted to [facility], where she underwent surgery for a left femoral neck fracture. The patient was subsequently discharged to [place]. After discharge from [place], the patient has been residing at [facility]. Ms. Mallory has no complaints today. She denies any fever or chills. The patient continues to perform dressing changes of Medihoney for her left medial lower leg ulceration. PHYSICAL EXAMINATION: VITAL SIGNS: Temperature 97.5, pulse 65, respirations 18, blood pressure 168/ 71. EXTREMITIES: The ulceration over the left medial lower leg measures approximately 0.3 x 0.2 cm. Nonviable tissue present within the wound margins was debrided with an excisional full-thickness debridement. Moderate serous drainage is associated with the wound. Granulation tissue is present within the wound margins. No cellulitis of the left lower leg is appreciated. No maceration of the skin of the periwound is noted. No significant edema of the left foot or lower leg is present on exam today. ASSESSMENT AND PLAN: 1. Varicose veins with ulcers and inflammation. The patient has undergone courses of treatment with Apligraf for her ulcerations. The patient has also undergone venous ablation on the right and on the left by Dr. Zeina Meyer. The ulceration of the left medial lower leg, for which the patient is being seen today and has also been treated with Hyalomatrix. Dressing changes of Medihoney and Mepilex border are to be performed 3 times per week after cleansing and irrigation. Again, the patient states she will continue to perform her own dressing changes. I will see Ms. Mallory again in 1 to 2 months if her wound is still present at this time. 2. Lymphedema tarda, stage II. The patient previously declined treatment with a pneumatic pump. 3. Gastroesophageal reflux disease. 4. History of erythema nodosum. 5. Scoliosis. Job ID: [id number] [facility]
[2018-04-06] MEDS ORDERED: Sodium Chloride 0.9% 15 ML NEB ONE (18:00)
== END 2018-04-06 10:56 | disposition home or self-care (01) ==
LOC: WCC 10:55
PROVIDERS: ATTEND Family Medicine
DX: I83.228 Varicose veins of left lower extremity with both ulcer of other part of lower extremity and inflammation (principal); L97.929 Non-pressure chronic ulcer of unspecified part of left lower leg with unspecified severity; I89.0 Lymphedema, not elsewhere classified; K21.9 Gastro-esophageal reflux disease without esophagitis; M41.9 Scoliosis, unspecified; Z87.2 Personal history of diseases of the skin and subcutaneous tissue
CPT/HCPCS: A4218

== ENCOUNTER 2018-11-09 09:52 | Outpatient (CLI) | payer MEDICARE, OTHER ==
[2018-11-09 14:12] LABS: Hemoglobin 14.2 g/dL (12.0-16.0); Mean Corpuscular HGB CONC 33.6 g/dL (32.0-36.0); Mean Corpuscular Hemoglobin 31.1 pg (27.0-31.0); Mean Corpuscular Volume 92.5 fL (78.0-98.0); Mean Platelet Volume 7.6 fL (7.4-10.4); Platelet Count 259 thou/uL (130-400); RBC Distribution Width 13.7 % (11.5-14.5); Red Blood Cell (RBC) Count 4.55 mill/uL (4.20-5.40); White Blood Cell (WBC) Count 8.1 thou/uL (4.8-10.8)
[2018-11-09 14:21] LABS: Prothrombin Time 13.5 SEC (12.0-14.7)
[2018-11-09 14:30] LABS: Anion Gap 11 mmol/L (10-20); BUN (Urea Nitrogen) 38 mg/dL (9.8-20.1); Calc. Creatinine Clearance 0 mL/min (70-130); Calcium 10.4 mg/dL (7.8-10.44); Carbon Dioxide 29 mmol/L (23-31); Chloride 101 mmol/L (98-107); Estimated GFR-MDRD 28; Glucose 88 mg/dL (83-110); Potassium 4.4 mmol/L (3.5-5.1); Sodium 137 mmol/L (136-145)
== END 2018-11-09 09:53 | disposition home or self-care (01) ==
LOC: LABBT 09:52
PROVIDERS: ATTEND Orthopaedic Surgery
DX: Z01.812 Encounter for preprocedural laboratory examination (principal); M16.11 Unilateral primary osteoarthritis, right hip
CPT/HCPCS: 80048; 85027; 85610; 87081

== ENCOUNTER 2018-11-21 08:51 | Inpatient (IN) | payer MEDICARE, OTHER ==
[2018-11-21] MEDS ORDERED: Fentanyl 100 MCG/2 ML VIAL ONE ×4 (10:44→14:30)
[2018-11-21] MEDS ORDERED: Midazolam HCl 2 mg/2 ml Vial ONE (10:44)
[2018-11-21] MEDS ORDERED: Lidocaine 2% Jelly 5 ML TUBE ONE (11:00)
[2018-11-21] MEDS ORDERED: Bupivacaine HCl 0.5%/Epinephrine 1:200,000/PF 30 ml Vial ONE (11:00)
[2018-11-21] MEDS ORDERED: Ondansetron PF 4 MG/2 ML Vial IVP PRN (11:45)
[2018-11-21] MEDS ORDERED: Bupivacaine 0.25% 10 ML VIAL EPIDURAL PRN (11:45)
[2018-11-21] MEDS ORDERED: diphenhydrAMINE 50 MG/ML VIAL IVP PRN (11:45)
[2018-11-21] MEDS ORDERED: Naloxone HCl 0.4 mg/ml Vial IV PRN (11:45)
[2018-11-21] MEDS ORDERED: diphenhydrAMINE 25 MG CAP PO PRN (11:45)
[2018-11-21] MEDS ORDERED: Promethazine HCl 25 MG/ML VIAL IM PRN ×2 (11:45→13:54)
[2018-11-21] MEDS ORDERED: Zolpidem Tartrate 5 MG TAB PO PRN (11:45)
[2018-11-21] MEDS ORDERED: diphenhydrAMINE 50 MG/ML VIAL IM PRN (11:45)
[2018-11-21] MEDS ORDERED: Promethazine HCl 25 MG SUPP PR PRN (11:45)
[2018-11-21] MEDS ORDERED: fentaNYL Citrate/PF 500 MCG, Bupivacaine 10 ML in Sodium Chloride 0.9% 80 ML EPIDURAL SCH (11:45)
[2018-11-21] MEDS ORDERED: traMADol HCl 50 MG TAB PO PRN ×2 (11:45)
[2018-11-21] MEDS ORDERED: Hydrocerin (Eucerin) Cream 120 gm Jar TOP PRN (11:45)
[2018-11-21] MEDS ORDERED: Naloxone HCl 0.4 mg/ml Vial IVP PRN (11:45)
[2018-11-21] MEDS ORDERED: HYDROcodone/Acetaminophen 5/325 mg Tablet PO PRN ×2 (11:45)
[2018-11-21] MEDS ORDERED: Dexamethasone 20 MG/5 ML VIAL ONE (11:47)
[2018-11-21] MEDS ORDERED: Lidocaine 1% PF 5 ML VIAL ONE (11:47)
[2018-11-21] MEDS ORDERED: PROPOFOL 200 MG/20 ML VIAL ONE (11:47)
[2018-11-21] MEDS ORDERED: PHENYLEPHRINE-NS 100 MCG/ML 10 ML SYRINGE ONE (11:47)
[2018-11-21] MEDS ORDERED: Rocuronium Bromide 10 MG/ML (10ML VIAL) ONE (11:47)
[2018-11-21] MEDS ORDERED: Glycopyrrolate 0.2 MG/ML 5 ML SYRINGE ONE (11:47)
[2018-11-21] MEDS ORDERED: ePHEDrine 50 MG/ML VIAL ONE (11:47)
[2018-11-21] MEDS ORDERED: Bupivacaine/Epinephrine 0.25% 30 ML VIAL ONE (12:03)
[2018-11-21] MEDS ORDERED: Neomycin-Polymyxin 1 ML AMP ONE (12:46)
[2018-11-21] MEDS ORDERED: Ondansetron HCl/PF 4 MG/2 ML Vial IVP PRN (13:54)
[2018-11-21] MEDS ORDERED: Promethazine HCl 25 MG/ML VIAL SLOW IVP PRN (13:54)
[2018-11-21] MEDS ORDERED: HYDROcodone/Acetaminophen 10/325 mg Tablet PO PRN ×2 (14:00)
[2018-11-21] MEDS ORDERED: Ketorolac Tromethamine 30 MG/ML VIAL ONE (14:20)
--- NOTE | 2018-11-21 14:25 | RAD ---
RIGHT HIP 2 VIEWS: Date: 11/21/18 HISTORY: Postop. FINDINGS: This shows placement of a total hip prosthesis, which appears to be in good position. No signs of fra cture. IMPRESSION: Placement of total hip prosthesis. POS: OFF
--- NOTE | 2018-11-21 15:27 | OP ---
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 PROCEDURES PERFORMED: 1. Removal of hardware from the right knee. 2. Right total hip replacement. ANESTHESIA: General. DESCRIPTION OF PROCEDURE: The patient had epidural catheter performed by Anesthesia prior to surgery. She was given preoperative IV antibiotics, taken to the operating room, placed in supine position. Satisfactory general anesthesia was performed. The patient was then placed in the left lateral decubitus position. All bony prominences were well padded. The right hip and lower extremity were sterilely prepped and draped in the usual fashion. A longitudinal incision was made over the lateral aspect of the hip, approximately 8 inches in length. The lateral aspect of the hip was inspected. One of the cannulated screws was found, and after removing some bone that had formed around the screw head, it was removed. The other 2 screws had been buried in the bone and had to be located with the C-arm and were able to be successfully removed. The anterior capsule was then excised and the hip joint was dislocated. The femoral head was significantly flattened and there were many fragments of bone and cartilage that was in the hip joint and also caught up in the soft tissue and these were removed. The neck was cut with oscillating saw. The lesser trochanter was noted to be bigger than normal, but the iliopsoas tendon was still attached to the lesser trochanter. After that, many of the bone debris was removed. Soft tissue was removed from around the acetabulum and the soft tissue that had formed in the acetabulum was noted to be extremely degenerative and had been worn out by the sharp edges of the ends of the screws. The acetabulum was then sequentially reamed up to 50 mm and DonJoy 3-hole cluster porous 52-mm shell was impacted into place and then held into place using two 6.5 screws. The 10-degree hooded neutral acetabular liner was locked into the shell and the proximal femur was then addressed 1st using a box osteotome, then a hand Charnley reamer. Then, it was sequentially rasped up to a size 14. Calcar was cut and the best fit was with the -3.5 Offset sleeve and a 36-mm head. This allowed for good stability of the hip joint and good range of motion. The trials from the proximal femur were removed. The hip joint was copiously irrigated with antibiotic solution using the high-speed president & founder. This was done prior to putting in the shell as well as prior to putting in the femoral component. Once irrigation was performed. The size 14 porous standard offset femoral stem was then impacted into the proximal femur with excellent fit. A -3.5-mm offset sleeve and a 36-mm femoral head was locked into place. It was then reduced and again the hip was found to be very stable with good range of motion. The wound was then closed using #2 Vicryl to close a portion of the anterior abductor muscles, #2 Vicryl for the iliotibial band, 0 Vicryl for the subcutaneous tissue, and the skin was closed with skin khushboo. Sterile dressing was applied. The patient was then awakened and transferred to recovery room in stable condition. ESTIMATED BLOOD LOSS: 200 mL. COMPLICATIONS: None. Job ID: [id number]
[2018-11-21] MEDS ORDERED: Albumin 25% 100 ML ONE (15:55)
[2018-11-21 17:50] VITALS: BMI 26.6
[2018-11-21] MEDS: Acetaminophen 325 MG TAB PO SCH (21:18)
[2018-11-21] MEDS: Gabapentin 300 MG CAP PO SCH (21:18)
[2018-11-21] MEDS: Methocarbamol 500 MG TAB PO SCH ×2 (21:19→21:38)
[2018-11-21] MEDS ORDERED: VANCOMYCIN HCL IVPB SCH (22:00)
[2018-11-22] MEDS ORDERED: Loperamide HCl 2 MG CAP PO PRN (08:21)
[2018-11-22] MEDS ORDERED: Calcium Carbonate 500 MG ChewTAB PO PRN (08:21)
[2018-11-22] MEDS ORDERED: Artificial Tears 18 DROP/0.9 ML EA EYE PRN (08:21)
[2018-11-22] MEDS ORDERED: Sodium Chloride 0.65% Nasal 44 ML BOT EA NARE PRN (08:21)
[2018-11-22] MEDS ORDERED: Cepastat Lozenges 1 LOZ PO PRN (08:21)
[2018-11-22] MEDS ORDERED: hydrALAZINE 20 MG/ML VIAL SLOW IVP PRN (08:21)
[2018-11-22] MEDS ORDERED: Bisacodyl 10 MG SUPP PR PRN (08:21)
[2018-11-22] MEDS ORDERED: Senokot S 8.6-50 MG TAB PO PRN (08:21)
[2018-11-22] MEDS ORDERED: Diabetic Tussin 200 MG/10 ML UDCUP PO PRN (08:21)
[2018-11-22 08:59] LABS: #Lymphocytes 0.7 thou/uL (1.20-3.40); #Monocytes 0.6 thou/uL (0.11-0.59); #Neutrophils 7.2 thou/uL (1.40-6.50); %Eosinophils 0.3 % (0.0-10.0); %Lymphocytes 7.9 % (21.0-51.0); %Monocytes 7.5 % (0.0-10.0); %Neutrophils 84.4 % (42.0-75.0); Hemoglobin 11.3 g/dL (12.0-16.0); Mean Corpuscular HGB CONC 33.3 g/dL (32.0-36.0); Mean Corpuscular Hemoglobin 31.9 pg (27.0-31.0); Mean Platelet Volume 7.2 fL (7.4-10.4); Platelet Count 214 thou/uL (130-400); RBC Distribution Width 13.5 % (11.5-14.5); Red Blood Cell (RBC) Count 3.54 mill/uL (4.20-5.40); White Blood Cell (WBC) Count 8.5 thou/uL (4.8-10.8)
[2018-11-22] MEDS ORDERED: Aspirin 81 mg Enteric Coated Tablet PO SCH (09:00)
[2018-11-22] MEDS ORDERED: Prevnar 13-Val Conj/PF 0.5 ML SYRINGE IM ONE (09:00)
[2018-11-22] MEDS: Gabapentin 300 MG CAP PO SCH ×2 (09:19→20:42)
[2018-11-22 09:20] LABS: ALT (SGPT) 12 U/L (8-55); AST (SGOT) 28 U/L (5-34); Albumin 3.6 g/dL (3.4-4.8); Alkaline Phosphatase 53 U/L (40-110); Anion Gap 11 mmol/L (10-20); BUN (Urea Nitrogen) 20 mg/dL (9.8-20.1); Bilirubin, Total 0.7 mg/dL (0.2-1.2); Calc. Creatinine Clearance 37 mL/min (70-130); Calcium 8.9 mg/dL (7.8-10.44); Carbon Dioxide 26 mmol/L (23-31); Chloride 103 mmol/L (98-107); Estimated GFR-MDRD 39; Globulin 2.1 g/dL (2.4-3.5); Glucose 83 mg/dL (83-110); Potassium 4.1 mmol/L (3.5-5.1); Protein, Total 5.7 g/dL (6.0-8.3); Sodium 136 mmol/L (136-145)
[2018-11-22] MEDS: Triamterene/Hydrochlorothiazide 37.5 mg/25 mg Tablet PO SCH (09:20)
[2018-11-22] MEDS: predniSONE 5 MG TAB PO SCH (09:20)
[2018-11-22] MEDS: Isosorbide Mononitrate (ER) 30 MG TAB PO SCH (09:20)
--- NOTE | 2018-11-22 13:41 | CON ---
DATE OF CONSULTATION: PRIMARY CARE PHYSICIAN: Dr. Amado Cerrato. PRIMARY ATTENDING: Dr. Zhou Malone. REASON FOR CONSULTATION: Medical comanagement. HISTORY OF PRESENT ILLNESS: An 83-year-old female with past medical history of hypertension, gastroesophageal reflux disease, and chronic kidney disease, who was electively admitted for right total hip replacement, which was done yesterday without any immediate complication. Postoperatively, the patient was at [facility], and medical team is consulted for medical comanagement. Currently, the patient does not have any pain. She does not have any UTI symptoms. She denies any constipation, diarrhea, melena, or hematochezia. The patient lives at independent living facility with [facility], where the patient is able to dress by herself , but she requires assistance with food. The patient is seen and examined at bedside today. The patient's pain is well controlled. Her son was present at bedside. The patient only stood up from the bed today. She has not done any significant therapy yet. PAST MEDICAL HISTORY: Hypertension, coronary artery disease, CKD stage 4, gastroesophageal reflux disease. PAST SURGICAL HISTORY: Right-sided nephrectomy, cholecystectomy, bilateral rotator cuff repair. PAST PSYCHIATRIC HISTORY: Reviewed and negative. ALLERGIES: NO KNOWN DRUG ALLERGIES. CURRENT HOME MEDICATIONS: 1. Dyazide 37.5/25 one tablet daily. 2. Prednisone 5 mg daily. 3. Protonix 40 mg p.o. at bedtime. 4. Methocarbamol 750 mg p.r.n. 5. Imdur 30 mg daily. 6. Gabapentin 600 mg twice daily. 7. Aspirin 81 mg daily. REVIEW OF SYSTEMS: CONSTITUTIONAL: Negative for weight loss or gain, ability to conduct usual activities. SKIN: Negative for rash, itching. EYES: Negative for double vision, pain. ENT/MOUTH: Negative for nose bleeding, neck stiffness, pain, tenderness. CARDIOVASCULAR: Negative for palpitations, dyspnea on exertion, orthopnea. RESPIRATORY: Negative for shortness of breath, wheezing, cough, hemoptysis, fever or night sweats. GASTROINTESTINAL: Negative for poor appetite, abdominal pain, heartburn, nausea , vomiting, constipation, or diarrhea. GENITOURINARY: Negative for urgency, frequency, dysuria, nocturia. MUSCULOSKELETAL: Negative for pain, swelling. NEUROLOGIC/PSYCHIATRIC: Negative for anxiety, depression. ALLERGY/IMMUNOLOGIC: Negative for skin rash, bleeding tendency. Please see my HPI for pertinent positives and negatives. All other review of systems reviewed and negative except as mentioned in HPI. FAMILY HISTORY: No strong family history of CAD, CVA or cancer. ALLERGIES: NO KNOWN DRUG ALLERGY. SOCIAL HISTORY: The patient lives at independent living facility. No history of tobacco, alcohol, or illicit drug abuse. The patient is full code, and the patient's son is surrogate decision maker. PHYSICAL EXAMINATION: VITAL SIGNS: Currently, blood pressure 106/57, pulse 62, respiratory rate 18, temperature 97.6, saturation 93% on room air. Weight 165 pounds. GENERAL: The patient is currently alert, awake, no obvious acute distress. HEENT: Head; normocephalic and atraumatic. Eyes; pupils are round, reactive to light. Extraocular muscle intact. ENT, oropharynx within normal limits. Moist mucous membranes. No oral lesion. No pharyngeal erythema. No exudate. NECK: Supple. No JVD. No thyromegaly. No carotid bruit. No jugular venous distention. LUNGS: Clear to auscultation without any rhonchi or rales. CARDIAC: S1 and S2 regular. No murmur. No gallop. No rub. ABDOMEN: Soft. Bowel sounds present. Nontender. Nondistended. No organomegaly. No mass. No suprapubic tenderness. BACK: Unremarkable. No CVA tenderness. The patient does have epidural in place. The patient does have Freire catheter in place. SCD in place. EXTREMITIES: Upper extremities, passive movement of all joints are normal. Lower extremity, no edema. Good distal pulsation. NEUROLOGIC: Nonfocal examination. SIGNIFICANT LABORATORY DATA: CBC; WBC 8.5, hemoglobin 11.3, platelets 214. BMP ; sodium 136, potassium 4.1, chloride 103, carbon dioxide 26, BUN 20, creatinine 1.31, glucose 83, calcium 8.9. LFT; AST 28, ALT 12, alkaline phosphatase 53, albumin 3.6. Hip x-ray done after surgery reviewed. ASSESSMENT AND PLAN: 1. Status post right total hip replacement. 2. Chronic kidney disease, stage 3. 3. Hypertension. 4. Gastroesophageal reflux disease. 5. Coronary artery disease. PLAN: 1. The patient's home medication has been reconciled. Epidural, we will defer to Anesthesia Team. The patient will get aspirin 81 mg p.o. daily and Lovenox 40 mg subcu daily. The patient will have PT and OT as per protocol. Her pain will be controlled with pain medication. The patient will eventually need a rehab placement after discharge. manager social media is already consulted. 2. Chronic kidney disease, stage 3. The patient has history of right-sided nephrectomy. Her renal function is stable. 3. Anemia due to acute blood loss. Her hemoglobin was 14.2 on November 09 and currently 11.3, expected with surgery, does not require any blood transfusion. 4. Hypertension. We will continue with Imdur 30 mg p.o. daily, and we will verify the patient's blood pressure medication, and continue selected blood pressure medication if blood pressure permits. If we will hold blood pressure medication , the blood pressure is less than 120 systolic. 5. Gastroesophageal reflux disease. Continue Protonix 40 mg p.o. daily. 6. Coronary artery disease, currently stable. Continue aspirin 81 mg p.o. daily , Imdur 30 mg daily. 7. Deep venous thrombosis prophylaxis. Lovenox 40 mg subcu daily. 8. Gastrointestinal prophylaxis, Protonix 40 mg p.o. daily. Code status discussed with the patient. The patient wants to be a full code. DISPOSITION PLAN: The patient will need a rehab placement. Thank you for consult. We will follow up with you while in hospital. Plan of care discussed with the patient and her son at bedside. Job ID: [id number] MTDD
--- NOTE | 2018-11-22 14:39 | PRG ---
DATE OF SERVICE: 11/22/2018 SUBJECTIVE: Ms. Mallory is 1 day status post right total hip replacement. The patient has an epidural catheter and it provided her excellent pain relief. She has gotten up with physical therapy. OBJECTIVE: The patient is afebrile. Vital signs are stable. Her CBC today shows hemoglobin 11.3 and hematocrit 34. Chemistries, creatinine 1.31, which is actually lower than what she had preoperatively. BUN is 20, which is normal. PLAN: The patient will continue with PT and OT to get out of bed. The patient may fully weight bear on the right lower extremity. Our plans post hospitalization is to go to rehab at [facility]. Job ID: [id number]
[2018-11-22] MEDS: Acetaminophen 325 MG TAB PO SCH (20:42)
[2018-11-22] MEDS: Methocarbamol 500 MG TAB PO SCH (20:43)
[2018-11-23] MEDS ORDERED: Enoxaparin Sodium 40 MG/0.4 ML SYRINGE SC SCH (09:00)
[2018-11-23] MEDS: Aspirin 81 mg Enteric Coated Tablet PO SCH (09:12)
[2018-11-23] MEDS: predniSONE 5 MG TAB PO SCH (09:12)
[2018-11-23] MEDS: Isosorbide Mononitrate (ER) 30 MG TAB PO SCH (09:12)
[2018-11-23] MEDS: Gabapentin 300 MG CAP PO SCH (09:12)
[2018-11-23] MEDS: Triamterene/Hydrochlorothiazide 37.5 mg/25 mg Tablet PO SCH (09:13)
[2018-11-23 10:02] LABS: #Eosinphils 0.3 thou/uL (0.0-0.7); #Lymphocytes 1.6 thou/uL (1.20-3.40); #Monocytes 1.3 thou/uL (0.11-0.59); %Basophils 0.4 % (0.0-1.0); %Eosinophils 2.4 % (0.0-10.0); %Lymphocytes 14.4 % (21.0-51.0); %Monocytes 11.6 % (0.0-10.0); %Neutrophils 71.2 % (42.0-75.0); Hemoglobin 11.1 g/dL (12.0-16.0); Mean Corpuscular Hemoglobin 31.8 pg (27.0-31.0); Mean Corpuscular Volume 96.5 fL (78.0-98.0); Mean Platelet Volume 7.4 fL (7.4-10.4); Platelet Count 200 thou/uL (130-400); RBC Distribution Width 13.7 % (11.5-14.5); Red Blood Cell (RBC) Count 3.49 mill/uL (4.20-5.40); White Blood Cell (WBC) Count 11.2 thou/uL (4.8-10.8)
[2018-11-23 10:23] LABS: ALT (SGPT) 26 U/L (8-55); AST (SGOT) 56 U/L (5-34); Albumin 3.3 g/dL (3.4-4.8); Alkaline Phosphatase 74 U/L (40-110); Anion Gap 11 mmol/L (10-20); BUN (Urea Nitrogen) 27 mg/dL (9.8-20.1); Bilirubin, Total 0.9 mg/dL (0.2-1.2); Calc. Creatinine Clearance 30 mL/min (70-130); Calcium 8.6 mg/dL (7.8-10.44); Carbon Dioxide 24 mmol/L (23-31); Chloride 103 mmol/L (98-107); Estimated GFR-MDRD 31; Globulin 2.4 g/dL (2.4-3.5); Glucose 93 mg/dL (83-110); Protein, Total 5.7 g/dL (6.0-8.3); Sodium 134 mmol/L (136-145)
[2018-11-23] MEDS: Bupivacaine 10 ML in Sodium Chloride 0.9% 90 ML EPIDURAL SCH (11:46)
[2018-11-23] MEDS: Sodium Chloride 0.9% 1,000 ML IV SCH (11:47)
--- NOTE | 2018-11-23 12:10 | PDOC.HOSPP ---
- Subjective Encounter Date: 11/23/18 Encounter Time: 08:00 Subjective: pt is weak, drawsy today, she was given gabapentin, methocarbamole last night and gabapentin this morning and has epidural - Objective Vital Signs & Weight: Vital Signs (12 hours) Temp Pulse Resp BP Pulse Ox 11/23/18 11:20 98.0 F 65 20 119/68 97 11/23/18 07:45 98.2 F 73 18 114/65 94 L 11/23/18 03:30 98.3 F 76 17 104/54 L 95 Weight Admit Weight 165 lb Weight 165 lb I&O: 11/22/18 11/23/18 11/24/18 06:59 06:59 06:59 Intake Total 1054 1140 Output Total 900 852 Balance 154 288 Result Diagrams: 11/23/18 09:55 11/23/18 09:55 Hospitalist ROS - Review of Systems ROS unobtainable: due to mental status Constitutional: reports: weakness, malaise. denies: fever, chills, sweats, other ENT: denies: ear pain, ear discharge, nose pain, nose discharge, nose congestion , mouth pain, mouth swelling, throat pain, throat swelling, other Cardiovascular: denies: chest pain, palpitations, orthopnea, paroxysmal noc. dyspnea, edema, light headedness, other Gastrointestinal: denies: nausea, vomiting, abdominal pain, diarrhea, constipation, melena, hematochezia, other Genitourinary: denies: dysuria, frequency, incontinence, hematuria, retention, other Musculoskeletal: denies: neck pain, shoulder pain, arm pain, back pain, hand pain, leg pain, foot pain, other - Medication Medications: Active Medications Generic Name Dose Route Start Last Admin Trade Name Jil PRN Reason Stop Dose Admin Acetaminophen 650 mg 11/21/18 21:00 11/22/18 20:42 Tylenol PO 650 mg HS MARY Administration Aspirin 81 mg 11/23/18 09:00 11/23/18 09:12 Ecotrin PO 81 mg DAILY MARY Administration Bupivacaine HCl 10 ml/ Sodium 100 mls @ 4 mls/hr 11/23/18 11:00 11/23/18 11: 46 Chloride EPIDURAL 100 mls INF MARY Administration Sodium Chloride 1,000 mls @ 75 mls/hr 11/23/18 11:45 11/23/18 11:47 Normal Saline 0.9% IV 1,000 mls .[id number] MARY Administration Isosorbide Mononitrate 30 mg 11/22/18 09:00 11/23/18 09:12 Imdur Er PO 30 mg DAILY MARY Administration Pantoprazole Sodium 40 mg 11/21/18 21:00 11/22/18 20:43 Protonix PO 40 mg HS MARY Administration Prednisone 5 mg 11/22/18 09:00 11/23/18 09:12 Prednisone PO 5 mg DAILY MARY Administration - Exam General Appearance: NAD, awake alert Eye: PERRL, anicteric sclera ENT: normocephalic atraumatic, no oropharyngeal lesions Neck: supple, symmetric, no JVD, no thyromegaly Heart: RRR, no murmur, no gallops, no rubs Respiratory: CTAB, no wheezes, no rales, no ronchi Gastrointestinal: soft, non-tender, non-distended, normal bowel sounds Extremities: no cyanosis, no clubbing, no edema Extremities - other findings: surgical site mild bruise noted Skin: normal turgor, no lesions Neurological: no focal deficits Neurological - other findings: asterexis and tremor noted Musculoskeletal: normal tone, normal strength Psychiatric: somnolent, lethargic Hosp A/P (1) Toxic metabolic encephalopathy Code(s): G92 - TOXIC ENCEPHALOPATHY Status: Acute (2) Status post right hip replacement Code(s): Z96.641 - PRESENCE OF RIGHT ARTIFICIAL HIP JOINT Status: Acute (3) LUIS (acute kidney injury) Code(s): N17.9 - ACUTE KIDNEY FAILURE, UNSPECIFIED Status: Acute (4) CKD (chronic kidney disease), stage III Code(s): N18.3 - CHRONIC KIDNEY DISEASE, STAGE 3 (MODERATE) Status: Chronic (5) Hypertension Code(s): I10 - ESSENTIAL (PRIMARY) HYPERTENSION Status: Chronic (6) GERD (gastroesophageal reflux disease) Code(s): K21.9 - GASTRO-ESOPHAGEAL REFLUX DISEASE WITHOUT ESOPHAGITIS Status: Chronic Qualifiers: Esophagitis presence: without esophagitis Qualified Code(s): K21.9 - Gastro -esophageal reflux disease without esophagitis (7) CAD (coronary artery disease) Code(s): I25.10 - ATHSCL HEART DISEASE OF [place] CORONARY ARTERY W/O ANG PCTRS Status: Acute Qualifiers: Coronary Disease-Associated Artery/Lesion type: [place] artery [place] vs. transplanted heart: [place] heart Associated angina: without angina Qualified Code(s): I25.10 - Atherosclerotic heart disease of [place] coronary artery without angina pectoris (8) Anemia, normocytic normochromic Code(s): D64.9 - ANEMIA, UNSPECIFIED Status: Chronic - Plan old records reviewed/req, plan discussed w/ family, quigley catheter, PT/OT, social work administrator, DVT proph w/SCDs 11/23/18- will dc methocarbamol, gabapenting, advised nurse to verify her home meds, start NS at 75 ml per hour, repeat labs tomorrow, will monitor, will need placement, medication reviewed as above, symptomatic treatment, epidural as per anesthesia
[2018-11-23] MEDS: Acetaminophen 325 MG TAB PO PRN (18:19)
[2018-11-23] MEDS: Acetaminophen 325 MG TAB PO SCH (20:34)
--- NOTE | 2018-11-23 23:08 | EKG ---
Test Reason : PREOP Blood Pressure : / mmHG Vent. Rate : 064 BPM Atrial Rate : 064 BPM P-R Int : 140 ms QRS Dur : 088 ms QT Int : 414 ms P-R-T Axes : 073 -48 019 degrees QTc Int : 427 ms Sinus rhythm with Premature atrial complexes Left anterior fascicular block Possible Anterior infarct (cited on or before 18-APR-1998) Abnormal ECG When compared with ECG of 14-SEP-2016 04:53, Premature atrial complexes are now Present Vent. rate has decreased BY 44 BPM Nonspecific T wave abnormality, worse in Lateral leads Confirmed by Joanna HEREDIA ([id number]) on 11/23/2018 11:08:00 PM Referred By: JAMESON Confirmed By:Joanna HEREDIA
[2018-11-24] MEDS: Sodium Chloride 0.9% 1,000 ML IV SCH ×2 (05:48→17:56)
[2018-11-24] MEDS: Acetaminophen 325 MG TAB PO PRN (08:22)
[2018-11-24] MEDS: Aspirin 81 mg Enteric Coated Tablet PO SCH (08:23)
[2018-11-24] MEDS: Isosorbide Mononitrate (ER) 30 MG TAB PO SCH (08:23)
[2018-11-24] MEDS: predniSONE 5 MG TAB PO SCH (08:23)
[2018-11-24 08:53] LABS: Anion Gap 12 mmol/L (10-20); BUN (Urea Nitrogen) 25 mg/dL (9.8-20.1); Calc. Creatinine Clearance 34 mL/min (70-130); Calcium 8.7 mg/dL (7.8-10.44); Carbon Dioxide 25 mmol/L (23-31); Chloride 103 mmol/L (98-107); Estimated GFR-MDRD 35; Glucose 103 mg/dL (83-110); Potassium 4.5 mmol/L (3.5-5.1); Sodium 135 mmol/L (136-145)
[2018-11-24 08:56] LABS: Band 5 % (5-11); Eosinophils 3 % (0-10); Hemoglobin 11.1 g/dL (12.0-16.0); Lymphocytes 9 % (21-51); MDiff Complete? YES; Mean Corpuscular HGB CONC 32.5 g/dL (32.0-36.0); Mean Corpuscular Hemoglobin 31.7 pg (27.0-31.0); Mean Corpuscular Volume 97.5 fL (78.0-98.0); Monocytes 10 % (0-10); Neutrophil 71 % (42-75); Platelet Count 181 thou/uL (130-400); Platelet Morphology Comment Appears Adequate; Polychromasia SLIGHT = 2-3 cells (100X) (0-2/hpf); RBC Distribution Width 13.9 % (11.5-14.5); Reactive Lymphocytes 2 % (0-10); White Blood Cell (WBC) Count 8.3 thou/uL (4.8-10.8)
--- NOTE | 2018-11-24 11:35 | PDOC.HOSPP ---
- Subjective Encounter Date: 11/24/18 Encounter Time: 08:30 Subjective: Patient seen and examined. No new complaints. No overnight events, pt is weak - Objective Vital Signs & Weight: Vital Signs (12 hours) Temp Pulse Resp BP Pulse Ox 11/24/18 07:34 98.8 F 68 20 138/74 95 11/24/18 03:41 98.2 F 75 16 155/69 H 95 11/23/18 23:44 98.1 F 82 16 126/63 95 Weight Admit Weight 165 lb Weight 165 lb I&O: 11/23/18 11/24/18 11/25/18 06:59 06:59 06:59 Intake Total 1140 2925 Output Total 852 2175 Balance 288 750 Result Diagrams: 11/24/18 08:17 11/24/18 08:17 Hospitalist ROS - Review of Systems Constitutional: reports: weakness, malaise. denies: fever, chills, sweats, other Respiratory: denies: cough, dry, shortness of breath, hemoptysis, SOB with excertion, pleuritic pain, sputum, wheezing, other Cardiovascular: denies: chest pain, palpitations, orthopnea, paroxysmal noc. dyspnea, edema, light headedness, other Gastrointestinal: denies: nausea, vomiting, abdominal pain, diarrhea, constipation, melena, hematochezia, other Genitourinary: denies: dysuria, frequency, incontinence, hematuria, retention, other Musculoskeletal: reports: leg pain. denies: neck pain, shoulder pain, arm pain , back pain, hand pain, foot pain, other Skin: denies: rash, lesions, tyrell, bruising, other - Medication Medications: Active Medications Generic Name Dose Route Start Last Admin Trade Name Freq PRN Reason Stop Dose Admin Acetaminophen 650 mg 11/21/18 11:36 11/24/18 08:22 Tylenol PO 650 mg Q6H PRN Administration Headache/Fever or MILD Pain Acetaminophen 650 mg 11/21/18 21:00 11/23/18 20:34 Tylenol PO 650 mg HS MARY Administration Aspirin 81 mg 11/23/18 09:00 11/24/18 08:23 Ecotrin PO 81 mg DAILY MARY Administration Bupivacaine HCl 10 ml/ Sodium 100 mls @ 4 mls/hr 11/23/18 11:00 11/23/18 11: 46 Chloride EPIDURAL 100 mls INF MARY Administration Sodium Chloride 1,000 mls @ 75 mls/hr 11/23/18 11:45 11/24/18 05:48 Normal Saline 0.9% IV 1,000 mls .[id number] MARY Administration Isosorbide Mononitrate 30 mg 11/22/18 09:00 11/24/18 08:23 Imdur Er PO 30 mg DAILY MARY Administration Pantoprazole Sodium 40 mg 11/21/18 21:00 11/23/18 20:34 Protonix PO 40 mg HS MAYR Administration Prednisone 5 mg 11/22/18 09:00 11/24/18 08:23 Prednisone PO 5 mg DAILY MARY Administration Tramadol HCl 100 mg 11/21/18 11:45 11/24/18 11:18 Ultram PO 100 mg Q6H PRN Administration Moderate Pain 4-6 - Exam General Appearance: NAD, awake alert Eye: PERRL, anicteric sclera ENT: normocephalic atraumatic, no oropharyngeal lesions Neck: supple, symmetric, no JVD, no thyromegaly Heart: RRR, no murmur, no gallops, no rubs, normal peripheral pulses Respiratory: CTAB, no wheezes, no rales, no ronchi, normal chest expansion Gastrointestinal: soft, non-tender, non-distended, normal bowel sounds Extremities: no cyanosis, no clubbing, no edema Skin: normal turgor, no lesions, no rashes Skin - other findings: surgical site with dressing, still has quigley and epidural Neurological: no focal deficits Musculoskeletal: normal tone Psychiatric: normal affect, normal behavior Hosp A/P (1) Toxic metabolic encephalopathy Code(s): G92 - TOXIC ENCEPHALOPATHY Status: Acute Plan: improving (2) Status post right hip replacement Code(s): Z96.641 - PRESENCE OF RIGHT ARTIFICIAL HIP JOINT Status: Acute (3) LUIS (acute kidney injury) Code(s): N17.9 - ACUTE KIDNEY FAILURE, UNSPECIFIED Status: Acute Plan: improving (4) CKD (chronic kidney disease), stage III Code(s): N18.3 - CHRONIC KIDNEY DISEASE, STAGE 3 (MODERATE) Status: Chronic (5) Hypertension Code(s): I10 - ESSENTIAL (PRIMARY) HYPERTENSION Status: Chronic (6) GERD (gastroesophageal reflux disease) Code(s): K21.9 - GASTRO-ESOPHAGEAL REFLUX DISEASE WITHOUT ESOPHAGITIS Status: Chronic Qualifiers: Esophagitis presence: without esophagitis Qualified Code(s): K21.9 - Gastro -esophageal reflux disease without esophagitis (7) CAD (coronary artery disease) Code(s): I25.10 - ATHSCL HEART DISEASE OF [place] CORONARY ARTERY W/O ANG PCTRS Status: Acute Qualifiers: Coronary Disease-Associated Artery/Lesion type: [place] artery [place] vs. transplanted heart: [place] heart Associated angina: without angina Qualified Code(s): I25.10 - Atherosclerotic heart disease of [place] coronary artery without angina pectoris (8) Anemia, normocytic normochromic Code(s): D64.9 - ANEMIA, UNSPECIFIED Status: Chronic - Plan old records reviewed/req, PT/OT 11/23/18- will dc methocarbamol, gabapenting, advised nurse to verify her home meds, start NS at 75 ml per hour, repeat labs tomorrow, will monitor, will need placement, medication reviewed as above, symptomatic treatment, epidural as per anesthesia 11/24/18- overall has improvement compared to yesterday but still very weak, her pain is controlled, medication reviewed as above, symptomatic treatment, await placement, will monitor one more day before consider discharge
[2018-11-24] MEDS: Bupivacaine 10 ML in Sodium Chloride 0.9% 90 ML EPIDURAL SCH (12:57)
--- NOTE | 2018-11-24 16:08 | PRG ---
DATE OF SERVICE: 11/24/2018 SUBJECTIVE: Ms. Mallory had mentally a bad day yesterday, but is doing better today. One of her sons is here and states that she is much more alert and awake. She is able to participate with physical therapy this morning and she has been getting out of bed. She is out of bed currently and sitting up in a chair. OBJECTIVE: The patient has been afebrile. Vital signs have been stable. CBC this morning shows hemoglobin 11.1 and hematocrit 34.1. Her chemistries show creatinine 1.41 and BUN 25. The right lower extremity is neurovascularly intact. PLAN: The patient will continue with therapy, gradually increasing her activities as tolerated. The hospitalist is continuing to monitor her mentally as well as her chemistries on lab, possible she can be discharged tomorrow much. Job ID: [id number]
[2018-11-24] MEDS: Methocarbamol 500 MG TAB PO PRN (17:56)
[2018-11-24] MEDS: Acetaminophen 325 MG TAB PO SCH (21:11)
[2018-11-25] MEDS: Bupivacaine 10 ML in Sodium Chloride 0.9% 90 ML EPIDURAL SCH (05:58)
[2018-11-25] MEDS: Sodium Chloride 0.9% 1,000 ML IV SCH ×2 (05:58→15:52)
[2018-11-25] MEDS: Methocarbamol 500 MG TAB PO PRN (05:59)
[2018-11-25] MEDS ORDERED: HYDROcodone/Acetaminophen 7.5/325 mg Tablet PO PRN ×2 (07:48)
[2018-11-25] MEDS: predniSONE 5 MG TAB PO SCH (09:19)
[2018-11-25] MEDS: Isosorbide Mononitrate (ER) 30 MG TAB PO SCH (09:19)
[2018-11-25] MEDS: Aspirin 81 mg Enteric Coated Tablet PO SCH (09:19)
[2018-11-25 16:05] VITALS: BP 159/79; TEMP 97.5
--- NOTE | 2018-11-25 16:53 | DIS ---
DATE OF ADMISSION: 11/21/2018 DATE OF DISCHARGE: 11/25/2018 DISCHARGE DISPOSITION: Inpatient rehab. PRIMARY DISCHARGE DIAGNOSIS: Status post right hip replacement and removal of hardware from right knee by Dr. Malone on 11/21/2018. SECONDARY DISCHARGE DIAGNOSES: Acute metabolic encephalopathy due to underlying dementia and pain medications and postop status, resolved; acute kidney injury, resolved; history of chronic kidney disease, stage 3; hypertension; gastroesophageal reflux disease; coronary artery disease; chronic anemia. PROCEDURES DONE DURING HOSPITALIZATION: The patient has had right total hip replacement and removal of hardware from right knee done by Dr. Malone on 11/21/2018. Postop, ELICIA QUINTERO, hospitalists were consulted for comanagement of medical issues. The patient has had mild acute metabolic encephalopathy postop due to multiple causes including anesthesia, postop stress, pain medications, and being hospitalized the patient being 83 years old. This is slowly resolving. She is beginning to eat. She has ambulated minimally with physical therapy. She has been accepted to inpatient rehab and will be shortly discharged there. She needs to continue aspirin 81 mg twice daily for DVT prophylaxis. Please note, I have seen and examined the patient on the day of discharge. A total of 35 minutes was spent on discharge plan. DISCHARGE MEDICATIONS: 1. Gabapentin 600 mg twice daily. 2. Calcium with vitamin D 1 tablet daily. 3. Imdur extended release 30 mg daily. 4. Protonix 40 mg p.o. at bedtime. 5. MiraLAX 17 g p.o. daily p.r.n. 6. Senokot-S 2 tablets p.o. twice daily. 7. Aspirin 81 mg twice daily for DVT prophylaxis post hip surgery. 8. Triamterene with hydrochlorothiazide 37.5/25 mg daily. 9. Prednisone 5 mg daily. 10. Ultram 50 mg p.o. q.6 hourly p.r.n. ALLERGIES: NO KNOWN DRUG ALLERGIES. DISCHARGE PLAN: The patient to follow up with Dr. Malone as advised and primary care physician in 1 week. Job ID: [id number]
== END 2018-11-25 17:20 | DRG 469 ==
LOC: SURG A 08:53 → SJJU 16:58
PROVIDERS: ADMIT Orthopaedic Surgery; ATTEND Orthopaedic Surgery
PROC: 0SR90JZ Replacement of Right Hip Joint with Synthetic Substitute, Open Approach (ICD-10-PCS; principal; 2018-11-21)
PROC: 0SP904Z Removal of Internal Fixation Device from Right Hip Joint, Open Approach (ICD-10-PCS; 2018-11-21)
DX: T84.194A Other mechanical complication of internal fixation device of right femur, initial encounter (principal); G92 Toxic encephalopathy; N17.9 Acute kidney failure, unspecified; D62 Acute posthemorrhagic anemia; M12.551 Traumatic arthropathy, right hip; T50.995A Adverse effect of other drugs, medicaments and biological substances, initial encounter; F03.90 Unspecified dementia, unspecified severity, without behavioral disturbance, psychotic disturbance, mood disturbance, and anxiety; N18.3 Chronic kidney disease, stage 3 (moderate); I12.9 Hypertensive chronic kidney disease with stage 1 through stage 4 chronic kidney disease, or unspecified chronic kidney disease; K21.9 Gastro-esophageal reflux disease without esophagitis; I25.10 Atherosclerotic heart disease of native coronary artery without angina pectoris; Z90.5 Acquired absence of kidney; Z90.49 Acquired absence of other specified parts of digestive tract
CPT/HCPCS: 36415; 80048; 80053; 85025; 93005; 93010; C1713; J0131; J0670; J0690; J1100; J1885; J2001; J2250; J2704; J3010; J3370; J3490; J7512; P9047

== ENCOUNTER 2020-06-20 15:04 | Emergency (ER) | payer MEDICARE ==
[2020-06-20] MEDS ORDERED: Boostrix 0.5 ML (Tdap) VIAL ONE (15:19)
[2020-06-20] MEDS ORDERED: Lidocaine 1% w/Epinephrine 1:100K 20 ML VIAL ONE (15:19)
== END 2020-06-20 17:30 | disposition home or self-care (01) ==
LOC: ERS 15:04
DX: S81.812A Laceration without foreign body, left lower leg, initial encounter (principal); W26.8XXA Contact with other sharp object(s), not elsewhere classified, initial encounter
CPT/HCPCS: 12001; 90471; 90715

== ENCOUNTER 2020-07-17 15:50 | Inpatient (IN) | payer MEDICARE ==
[2020-07-17 16:58] LABS: #Eosinphils 0.1 thou/uL (0.0-0.7); #Lymphocytes 0.8 thou/uL (1.20-3.40); #Monocytes 0.4 thou/uL (0.11-0.59); #Neutrophils 7.1 thou/uL (1.40-6.50); %Basophils 0.3 % (0.0-1.0); %Eosinophils 0.6 % (0.0-10.0); %Neutrophils 84.1 % (42.0-75.0); Hemoglobin 9.4 g/dL (12.0-16.0); Mean Corpuscular HGB CONC 32.3 g/dL (32.0-36.0); Mean Corpuscular Hemoglobin 26.9 pg (27.0-31.0); Mean Corpuscular Volume 83.2 fL (78.0-98.0); Mean Platelet Volume 7.1 fL (7.4-10.4); Platelet Count 491 thou/uL (130-400); Red Blood Cell (RBC) Count 3.51 mill/uL (4.20-5.40); White Blood Cell (WBC) Count 8.4 thou/uL (4.8-10.8)
[2020-07-17 17:23] LABS: ALT (SGPT) 11 U/L (8-55); AST (SGOT) 35 U/L (5-34); Albumin 3.7 g/dL (3.4-4.8); Alkaline Phosphatase 124 U/L (40-110); Anion Gap 15 mmol/L (10-20); BUN (Urea Nitrogen) 37 mg/dL (9.8-20.1); Bilirubin, Total 0.5 mg/dL (0.2-1.2); Calc. Creatinine Clearance 0 mL/min (70-130); Carbon Dioxide 28 mmol/L (23-31); Chloride 100 mmol/L (98-107); Glucose 113 mg/dL (83-110); Potassium 4.8 mmol/L (3.5-5.1); Protein, Total 7.7 g/dL (5.8-8.1); Sodium 138 mmol/L (136-145)
[2020-07-17] MEDS ORDERED: Cefepime 2 GM VIAL ONE (18:08)
[2020-07-17 18:35] LABS: INR-International Normal Ratio 1.1; Prothrombin Time 14.1 sec (12.0-14.7)
[2020-07-17 18:36] LABS: PTT 40.7 sec (22.9-36.1)
[2020-07-17] MEDS ORDERED: Acetaminophen 325 MG TAB ONE (20:32)
[2020-07-17] MEDS ORDERED: Acetaminophen 325 MG TAB PO PRN (20:37)
[2020-07-17] MEDS ORDERED: Zolpidem Tartrate 5 MG TAB PO PRN (20:37)
[2020-07-17] MEDS ORDERED: Ondansetron PF 4 MG/2 ML Vial IVP PRN (20:37)
[2020-07-17] MEDS ORDERED: Labetalol HCl 100 MG/20 ML VIAL SLOW IVP PRN (20:40)
[2020-07-17] MEDS ORDERED: hydrALAZINE 20 MG/ML VIAL SLOW IVP PRN (20:40)
[2020-07-17] MEDS ORDERED: Enoxaparin Sodium 40 MG/0.4 ML SYRINGE ONE (21:09)
[2020-07-17] MEDS ORDERED: Enoxaparin Sodium 30 MG/0.3 ML SYRINGE ONE (21:09)
[2020-07-17 21:13] LABS: Iron 59 ug/dL (50-170); Iron Binding Capacity, Total 405 mcg/dL (265-497)
[2020-07-17] MEDS ORDERED: hydrALAZINE 20 MG/ML VIAL ONE (21:26)
[2020-07-17] MEDS ORDERED: Furosemide 40 MG/4 ML VIAL SLOW IVP SCH (21:30)
[2020-07-17] MEDS: Apixaban 5 MG TAB PO SCH (22:51)
[2020-07-17] MEDS: Gabapentin 300 MG CAP PO SCH (22:51)
[2020-07-18] MEDS: HYDROcodone/Acetaminophen 5/325 mg Tablet PO PRN (02:44)
[2020-07-18 03:30] LABS: SARS-CoV-2 NAA Rapid Test Not Detected (NotDetected)
[2020-07-18 04:55] LABS: Hemoglobin 9.5 g/dL (12.0-16.0); Mean Corpuscular HGB CONC 32.4 g/dL (32.0-36.0); Mean Corpuscular Hemoglobin 26.8 pg (27.0-31.0); Mean Corpuscular Volume 82.6 fL (78.0-98.0); Mean Platelet Volume 6.9 fL (7.4-10.4); Platelet Count 453 thou/uL (130-400); RBC Distribution Width 16.3 % (11.5-14.5); Red Blood Cell (RBC) Count 3.53 mill/uL (4.20-5.40); White Blood Cell (WBC) Count 9.9 thou/uL (4.8-10.8)
[2020-07-18 05:08] LABS: ALT (SGPT) 9 U/L (8-55); AST (SGOT) 18 U/L (5-34); Albumin 3.4 g/dL (3.4-4.8); Alkaline Phosphatase 112 U/L (40-110); Anion Gap 14 mmol/L (10-20); BUN (Urea Nitrogen) 36 mg/dL (9.8-20.1); Bilirubin, Total 0.6 mg/dL (0.2-1.2); Calc. Creatinine Clearance 25 mL/min (70-130); Calcium 9.5 mg/dL (7.8-10.44); Carbon Dioxide 31 mmol/L (23-31); Chloride 99 mmol/L (98-107); Globulin 3.2 g/dL (2.4-3.5); Glucose 90 mg/dL (83-110); Potassium 3.7 mmol/L (3.5-5.1); Protein, Total 6.6 g/dL (5.8-8.1); Sodium 140 mmol/L (136-145)
[2020-07-18] MEDS: Cefepime 1 GM in Sodium Chloride 0.9% 100 ML IVPB SCH ×2 (05:38→16:35)
[2020-07-18] MEDS: Furosemide 40 MG/4 ML VIAL SLOW IVP SCH ×2 (05:39→14:43)
[2020-07-18 06:07] LABS: Anisocytosis SLIGHT = 6-15 cells (100X) (0-5/hpf); Band 8 % (5-11); Eosinophils 3 % (0-10); Lymphocytes 12 % (21-51); MDiff Complete? YES; Monocytes 3 % (0-10); Neutrophil 74 % (42-75)
[2020-07-18] MEDS: predniSONE 5 MG TAB PO SCH (09:27)
[2020-07-18] MEDS: Apixaban 5 MG TAB PO SCH (09:27)
[2020-07-18] MEDS ORDERED: traMADol HCl 50 MG TAB PO PRN (14:15)
[2020-07-18] MEDS ORDERED: Naproxen 500 MG TAB PO PRN (14:19)
[2020-07-18] MEDS ORDERED: VANCOMYCIN 1.25 GM/250 ML BAG 1.25 GM in Premix Bag 1 BAG IVPB SCH (14:30)
[2020-07-18] MEDS ORDERED: Vancomycin 1 GM in Premix Bag 1 BAG IVPB SCH (14:30)
[2020-07-18] MEDS: DULoxetine 60 MG CAP PO SCH (20:52)
[2020-07-18] MEDS: Gabapentin 300 MG CAP PO SCH (20:52)
[2020-07-19] MEDS: HYDROcodone/Acetaminophen 5/325 mg Tablet PO PRN ×2 (04:35→14:02)
[2020-07-19 04:40] LABS: #Eosinphils 0.1 thou/uL (0.0-0.7); #Lymphocytes 1.7 thou/uL (1.20-3.40); #Neutrophils 8.9 thou/uL (1.40-6.50); %Basophils 0.2 % (0.0-1.0); %Eosinophils 1.1 % (0.0-10.0); %Lymphocytes 14.5 % (21.0-51.0); %Monocytes 8.6 % (0.0-10.0); %Neutrophils 75.7 % (42.0-75.0); Hemoglobin 8.9 g/dL (12.0-16.0); Mean Corpuscular HGB CONC 31.7 g/dL (32.0-36.0); Mean Corpuscular Hemoglobin 25.9 pg (27.0-31.0); Mean Corpuscular Volume 81.7 fL (78.0-98.0); Mean Platelet Volume 7.1 fL (7.4-10.4); Platelet Count 441 thou/uL (130-400); RBC Distribution Width 16.6 % (11.5-14.5); Red Blood Cell (RBC) Count 3.46 mill/uL (4.20-5.40); White Blood Cell (WBC) Count 11.7 thou/uL (4.8-10.8)
[2020-07-19 05:07] LABS: Anion Gap 12 mmol/L (10-20); BUN (Urea Nitrogen) 37 mg/dL (9.8-20.1); Calc. Creatinine Clearance 22 mL/min (70-130); Calcium 8.8 mg/dL (7.8-10.44); Carbon Dioxide 31 mmol/L (23-31); Chloride 97 mmol/L (98-107); Glucose 102 mg/dL (83-110); Potassium 3.6 mmol/L (3.5-5.1); Sodium 136 mmol/L (136-145)
[2020-07-19] MEDS: Cefepime 1 GM in Sodium Chloride 0.9% 100 ML IVPB SCH ×2 (05:28→17:31)
[2020-07-19] MEDS: Furosemide 40 MG/4 ML VIAL SLOW IVP SCH ×2 (05:30→14:02)
[2020-07-19] MEDS: Calcium Carbonate 600 MG + Vit D TAB PO SCH (09:38)
[2020-07-19] MEDS: Cholecalciferol 1,000 UNITS (25 MCG) TAB PO SCH (09:38)
[2020-07-19] MEDS: predniSONE 5 MG TAB PO SCH (09:38)
[2020-07-19] MEDS: Aripiprazole 2 MG TAB PO SCH (09:38)
[2020-07-19 14:13] LABS: Vancomycin, Random 10.2 ug/mL (See Comment)
[2020-07-19] MEDS ORDERED: Vancomycin HCl 750 MG in Sodium Chloride 0.9% 250 ML 250 ML IVPB SCH (15:00)
[2020-07-19] MEDS: DULoxetine 60 MG CAP PO SCH (20:53)
[2020-07-19] MEDS: Gabapentin 300 MG CAP PO SCH (20:54)
[2020-07-20 05:05] LABS: #Eosinphils 0.2 thou/uL (0.0-0.7); #Lymphocytes 1.4 thou/uL (1.20-3.40); #Neutrophils 9.4 thou/uL (1.40-6.50); %Basophils 0.3 % (0.0-1.0); %Eosinophils 1.8 % (0.0-10.0); %Lymphocytes 11.4 % (21.0-51.0); %Monocytes 8.5 % (0.0-10.0); Hemoglobin 9.4 g/dL (12.0-16.0); Mean Corpuscular HGB CONC 31.8 g/dL (32.0-36.0); Mean Corpuscular Hemoglobin 26.3 pg (27.0-31.0); Mean Corpuscular Volume 82.9 fL (78.0-98.0); Mean Platelet Volume 7.1 fL (7.4-10.4); Platelet Count 448 thou/uL (130-400); RBC Distribution Width 16.8 % (11.5-14.5); Red Blood Cell (RBC) Count 3.58 mill/uL (4.20-5.40); White Blood Cell (WBC) Count 12.1 thou/uL (4.8-10.8)
[2020-07-20] MEDS: Cefepime 1 GM in Sodium Chloride 0.9% 100 ML IVPB SCH ×2 (05:36→17:55)
[2020-07-20 05:42] LABS: Anion Gap 14 mmol/L (10-20); BUN (Urea Nitrogen) 43 mg/dL (9.8-20.1); Calc. Creatinine Clearance 22 mL/min (70-130); Calcium 9.3 mg/dL (7.8-10.44); Carbon Dioxide 33 mmol/L (23-31); Chloride 95 mmol/L (98-107); Glucose 99 mg/dL (83-110); Magnesium 2.1 mg/dL (1.6-2.6); Potassium 3.6 mmol/L (3.5-5.1); Sodium 138 mmol/L (136-145)
[2020-07-20] MEDS: Furosemide 40 MG/4 ML VIAL SLOW IVP SCH (06:08)
[2020-07-20] MEDS: predniSONE 5 MG TAB PO SCH (09:57)
[2020-07-20] MEDS: Calcium Carbonate 600 MG + Vit D TAB PO SCH (09:58)
[2020-07-20] MEDS: Cholecalciferol 1,000 UNITS (25 MCG) TAB PO SCH (09:58)
[2020-07-20] MEDS: Aripiprazole 2 MG TAB PO SCH (09:58)
[2020-07-20] MEDS ORDERED: Amlodipine 5 MG TAB PO SCH (12:45)
[2020-07-20] MEDS ORDERED: VANCOMYCIN 1.25 GM/250 ML BAG 1.25 GM in Premix Bag 1 BAG IVPB SCH (14:30)
[2020-07-20] MEDS: Gabapentin 300 MG CAP PO SCH (20:29)
[2020-07-20] MEDS: DULoxetine 60 MG CAP PO SCH (20:30)
[2020-07-20] MEDS: Ferrous Sulfate 325 MG TAB PO SCH (20:30)
[2020-07-21 04:19] LABS: #Eosinphils 0.2 thou/uL (0.0-0.7); #Lymphocytes 1.4 thou/uL (1.20-3.40); #Monocytes 1.1 thou/uL (0.11-0.59); #Neutrophils 9.1 thou/uL (1.40-6.50); %Basophils 0.2 % (0.0-1.0); %Lymphocytes 11.6 % (21.0-51.0); %Monocytes 8.9 % (0.0-10.0); %Neutrophils 77.2 % (42.0-75.0); Hemoglobin 9.5 g/dL (12.0-16.0); Mean Corpuscular HGB CONC 31.3 g/dL (32.0-36.0); Mean Corpuscular Hemoglobin 25.9 pg (27.0-31.0); Mean Corpuscular Volume 82.7 fL (78.0-98.0); Platelet Count 422 thou/uL (130-400); Red Blood Cell (RBC) Count 3.65 mill/uL (4.20-5.40); White Blood Cell (WBC) Count 11.8 thou/uL (4.8-10.8)
[2020-07-21 04:36] LABS: Anion Gap 14 mmol/L (10-20); BUN (Urea Nitrogen) 46 mg/dL (9.8-20.1); Calc. Creatinine Clearance 21 mL/min (70-130); Calcium 9.3 mg/dL (7.8-10.44); Carbon Dioxide 33 mmol/L (23-31); Chloride 95 mmol/L (98-107); Glucose 114 mg/dL (83-110); Magnesium 2.1 mg/dL (1.6-2.6); Potassium 3.6 mmol/L (3.5-5.1); Sodium 138 mmol/L (136-145)
[2020-07-21] MEDS: Cefepime 1 GM in Sodium Chloride 0.9% 100 ML IVPB SCH ×2 (05:38→16:41)
[2020-07-21] MEDS ORDERED: Furosemide 40 MG/4 ML VIAL SLOW IVP SCH (09:00)
[2020-07-21] MEDS: Calcium Carbonate 600 MG + Vit D TAB PO SCH (09:02)
[2020-07-21] MEDS: predniSONE 5 MG TAB PO SCH (09:02)
[2020-07-21] MEDS: Aripiprazole 2 MG TAB PO SCH (09:02)
[2020-07-21] MEDS: Amlodipine 5 MG TAB PO SCH (09:03)
[2020-07-21] MEDS: Cholecalciferol 1,000 UNITS (25 MCG) TAB PO SCH (09:03)
[2020-07-21] MEDS: Ferrous Sulfate 325 MG TAB PO SCH ×2 (09:03→20:57)
[2020-07-21] MEDS: Morphine 2 MG/ML VIAL SLOW IVP PRN (09:10)
[2020-07-21 14:29] LABS: Vancomycin, Random 13.5 ug/mL (See Comment)
[2020-07-21] MEDS ORDERED: VANCOMYCIN 1.25 GM/250 ML BAG 1.25 GM in Premix Bag 1 BAG IVPB SCH (18:00)
[2020-07-21] MEDS: DULoxetine 60 MG CAP PO SCH (20:57)
[2020-07-21] MEDS: Apixaban 5 MG TAB PO SCH (20:58)
[2020-07-21] MEDS ORDERED: Apixaban 5 MG TAB PO SCH (21:00)
[2020-07-22] MEDS: Cefepime 1 GM in Sodium Chloride 0.9% 100 ML IVPB SCH ×2 (05:56→17:40)
[2020-07-22 07:59] LABS: #Eosinphils 0.3 thou/uL (0.0-0.7); #Lymphocytes 1.1 thou/uL (1.20-3.40); #Monocytes 0.8 thou/uL (0.11-0.59); #Neutrophils 8.5 thou/uL (1.40-6.50); %Basophils 0.2 % (0.0-1.0); %Eosinophils 2.9 % (0.0-10.0); %Lymphocytes 10.4 % (21.0-51.0); %Monocytes 7.2 % (0.0-10.0); %Neutrophils 79.3 % (42.0-75.0); Hemoglobin 9.9 g/dL (12.0-16.0); Mean Corpuscular HGB CONC 31.2 g/dL (32.0-36.0); Mean Corpuscular Volume 83.1 fL (78.0-98.0); Mean Platelet Volume 7.7 fL (7.4-10.4); Platelet Count 315 thou/uL (130-400); RBC Distribution Width 16.7 % (11.5-14.5); Red Blood Cell (RBC) Count 3.83 mill/uL (4.20-5.40); White Blood Cell (WBC) Count 10.7 thou/uL (4.8-10.8)
[2020-07-22 08:16] LABS: Anion Gap 16 mmol/L (10-20); BUN (Urea Nitrogen) 50 mg/dL (9.8-20.1); Calc. Creatinine Clearance 26 mL/min (70-130); Calcium 8.9 mg/dL (7.8-10.44); Carbon Dioxide 23 mmol/L (23-31); Chloride 100 mmol/L (98-107); Glucose 98 mg/dL (83-110); Potassium 3.3 mmol/L (3.5-5.1); Sodium 136 mmol/L (136-145)
[2020-07-22] MEDS: Cholecalciferol 1,000 UNITS (25 MCG) TAB PO SCH (08:25)
[2020-07-22] MEDS: Amlodipine 5 MG TAB PO SCH (08:25)
[2020-07-22] MEDS: predniSONE 5 MG TAB PO SCH (08:26)
[2020-07-22] MEDS: Apixaban 5 MG TAB PO SCH ×2 (08:26→21:04)
[2020-07-22] MEDS: Aripiprazole 2 MG TAB PO SCH (08:26)
[2020-07-22] MEDS: Calcium Carbonate 600 MG + Vit D TAB PO SCH (08:26)
[2020-07-22] MEDS: Ferrous Sulfate 325 MG TAB PO SCH ×2 (08:26→21:06)
[2020-07-22] MEDS ORDERED: predniSONE 5 MG TAB PO SCH (11:30)
[2020-07-22] MEDS ORDERED: Furosemide 20 MG TAB PO SCH (15:00)
[2020-07-22 17:31] LABS: Vancomycin, Random 17.6 ug/mL (See Comment)
[2020-07-22] MEDS ORDERED: VANCOMYCIN 1.25 GM/250 ML BAG 1.25 GM in Premix Bag 1 BAG IVPB SCH (17:45)
[2020-07-22] MEDS: DULoxetine 60 MG CAP PO SCH (21:04)
[2020-07-22] MEDS: Gabapentin 300 MG CAP PO SCH (21:05)
[2020-07-23 04:37] LABS: #Eosinphils 0.2 thou/uL (0.0-0.7); #Lymphocytes 1.7 thou/uL (1.20-3.40); #Neutrophils 8.7 thou/uL (1.40-6.50); %Basophils 0.3 % (0.0-1.0); %Lymphocytes 14.3 % (21.0-51.0); %Monocytes 8.6 % (0.0-10.0); %Neutrophils 74.8 % (42.0-75.0); Hemoglobin 9.5 g/dL (12.0-16.0); Mean Corpuscular HGB CONC 30.9 g/dL (32.0-36.0); Mean Corpuscular Hemoglobin 25.3 pg (27.0-31.0); Mean Corpuscular Volume 81.8 fL (78.0-98.0); Mean Platelet Volume 7.4 fL (7.4-10.4); Platelet Count 460 thou/uL (130-400); RBC Distribution Width 16.7 % (11.5-14.5); Red Blood Cell (RBC) Count 3.76 mill/uL (4.20-5.40); White Blood Cell (WBC) Count 11.6 thou/uL (4.8-10.8)
[2020-07-23 04:51] LABS: Anion Gap 16 mmol/L (10-20); BUN (Urea Nitrogen) 48 mg/dL (9.8-20.1); Calc. Creatinine Clearance 25 mL/min (70-130); Calcium 9.3 mg/dL (7.8-10.44); Carbon Dioxide 28 mmol/L (23-31); Chloride 96 mmol/L (98-107); Glucose 99 mg/dL (83-110); Potassium 3.6 mmol/L (3.5-5.1); Sodium 136 mmol/L (136-145)
[2020-07-23] MEDS: Cefepime 1 GM in Sodium Chloride 0.9% 100 ML IVPB SCH ×2 (05:51→17:35)
[2020-07-23] MEDS ORDERED: predniSONE 5 MG TAB PO SCH (08:00)
[2020-07-23] MEDS: Furosemide 20 MG TAB PO SCH (09:26)
[2020-07-23] MEDS: Cholecalciferol 1,000 UNITS (25 MCG) TAB PO SCH (09:26)
[2020-07-23] MEDS: Aripiprazole 2 MG TAB PO SCH (09:26)
[2020-07-23] MEDS: Apixaban 5 MG TAB PO SCH ×2 (09:26→21:50)
[2020-07-23] MEDS: Ferrous Sulfate 325 MG TAB PO SCH ×2 (09:26→21:52)
[2020-07-23] MEDS: Amlodipine 5 MG TAB PO SCH (09:26)
[2020-07-23] MEDS: Calcium Carbonate 600 MG + Vit D TAB PO SCH (09:26)
[2020-07-23] MEDS ORDERED: Acetaminophen 325 MG TAB PO PRN (09:36)
[2020-07-23] MEDS ORDERED: methylPREDNISolone Sod Succ 40 MG VIAL IVP SCH (09:45)
[2020-07-23 10:30] LABS: CRP (Inflammatory) 7.57 mg/dL (= or < 0.5); Uric Acid 9.4 mg/dL (2.6-6.0)
[2020-07-23] MEDS: HYDROcodone/Acetaminophen 5/325 mg Tablet PO SCH ×2 (14:21→21:52)
[2020-07-23 17:44] LABS: Vancomycin, Random 21.1 ug/mL (See Comment)
[2020-07-23] MEDS: Gabapentin 300 MG CAP PO SCH (21:50)
[2020-07-23] MEDS: methylPREDNISolone Sod Succ 40 MG VIAL IVP SCH (21:50)
[2020-07-23] MEDS: DULoxetine 60 MG CAP PO SCH (21:50)
[2020-07-23] MEDS: Polyethylene Glycol 3350 17 GM Packet PO PRN (22:54)
[2020-07-24 05:06] LABS: #Lymphocytes 0.7 thou/uL (1.20-3.40); #Neutrophils 6.9 thou/uL (1.40-6.50); %Basophils 0.3 % (0.0-1.0); %Eosinophils 0.1 % (0.0-10.0); %Lymphocytes 8.7 % (21.0-51.0); %Monocytes 0.3 % (0.0-10.0); %Neutrophils 90.6 % (42.0-75.0); Hemoglobin 8.9 g/dL (12.0-16.0); Mean Corpuscular Hemoglobin 26.3 pg (27.0-31.0); Mean Corpuscular Volume 82.1 fL (78.0-98.0); Mean Platelet Volume 7.5 fL (7.4-10.4); Platelet Count 392 thou/uL (130-400); RBC Distribution Width 16.5 % (11.5-14.5); Red Blood Cell (RBC) Count 3.38 mill/uL (4.20-5.40); White Blood Cell (WBC) Count 7.6 thou/uL (4.8-10.8)
[2020-07-24 05:29] LABS: Anion Gap 13 mmol/L (10-20); BUN (Urea Nitrogen) 49 mg/dL (9.8-20.1); Calc. Creatinine Clearance 27 mL/min (70-130); Calcium 9.4 mg/dL (7.8-10.44); Carbon Dioxide 29 mmol/L (23-31); Chloride 98 mmol/L (98-107); Glucose 129 mg/dL (83-110); Potassium 3.7 mmol/L (3.5-5.1); Sodium 136 mmol/L (136-145)
[2020-07-24] MEDS: Cefepime 1 GM in Sodium Chloride 0.9% 100 ML IVPB SCH ×2 (05:36→17:21)
[2020-07-24] MEDS: HYDROcodone/Acetaminophen 5/325 mg Tablet PO SCH ×3 (05:37→21:18)
[2020-07-24] MEDS: Aripiprazole 2 MG TAB PO SCH (09:47)
[2020-07-24] MEDS: Amlodipine 5 MG TAB PO SCH (09:47)
[2020-07-24] MEDS: Apixaban 5 MG TAB PO SCH ×2 (09:47→21:14)
[2020-07-24] MEDS: Furosemide 20 MG TAB PO SCH (09:48)
[2020-07-24] MEDS: Calcium Carbonate 600 MG + Vit D TAB PO SCH (09:48)
[2020-07-24] MEDS: Cholecalciferol 1,000 UNITS (25 MCG) TAB PO SCH (09:48)
[2020-07-24] MEDS: methylPREDNISolone Sod Succ 40 MG VIAL IVP SCH ×2 (09:48→21:15)
[2020-07-24] MEDS: Ferrous Sulfate 325 MG TAB PO SCH ×2 (09:48→21:14)
[2020-07-24] MEDS: HYDROcodone/Acetaminophen 5/325 mg Tablet PO PRN (09:49)
[2020-07-24] MEDS: Morphine 2 MG/ML VIAL SLOW IVP PRN (12:28)
[2020-07-24] MEDS ORDERED: Morphine 2 MG/ML VIAL SLOW IVP PRN (13:19)
[2020-07-24] MEDS ORDERED: Morphine 4 MG/ML VIAL SLOW IVP SCH (13:30)
[2020-07-24 14:35] LABS: Vancomycin, Random 15.7 ug/mL (See Comment)
[2020-07-24] MEDS ORDERED: Vancomycin 1 GM in Premix Bag 1 BAG IVPB SCH ×2 (15:30→18:00)
[2020-07-24 15:50] VITALS: BMI 25.8
[2020-07-24] MEDS: DULoxetine 60 MG CAP PO SCH (21:14)
[2020-07-24] MEDS: Gabapentin 300 MG CAP PO SCH (21:15)
[2020-07-25 05:11] LABS: #Basophils 0.1 thou/uL (0.0-0.2); #Lymphocytes 0.6 thou/uL (1.20-3.40); #Monocytes 0.2 thou/uL (0.11-0.59); #Neutrophils 11.2 thou/uL (1.40-6.50); %Basophils 0.6 % (0.0-1.0); %Eosinophils 0.1 % (0.0-10.0); %Lymphocytes 5.3 % (21.0-51.0); %Monocytes 1.3 % (0.0-10.0); %Neutrophils 92.7 % (42.0-75.0); Hemoglobin 9.4 g/dL (12.0-16.0); Mean Corpuscular HGB CONC 30.2 g/dL (32.0-36.0); Mean Corpuscular Volume 82.9 fL (78.0-98.0); Mean Platelet Volume 7.6 fL (7.4-10.4); Platelet Count 433 thou/uL (130-400); RBC Distribution Width 16.4 % (11.5-14.5); Red Blood Cell (RBC) Count 3.75 mill/uL (4.20-5.40); White Blood Cell (WBC) Count 12.1 thou/uL (4.8-10.8)
[2020-07-25 05:50] LABS: Anion Gap 13 mmol/L (10-20); BUN (Urea Nitrogen) 54 mg/dL (9.8-20.1); Calc. Creatinine Clearance 29 mL/min (70-130); Calcium 9.5 mg/dL (7.8-10.44); Carbon Dioxide 31 mmol/L (23-31); Chloride 96 mmol/L (98-107); Glucose 124 mg/dL (83-110); Potassium 4.2 mmol/L (3.5-5.1); Sodium 136 mmol/L (136-145)
[2020-07-25] MEDS: Cefepime 1 GM in Sodium Chloride 0.9% 100 ML IVPB SCH (06:06)
[2020-07-25] MEDS: HYDROcodone/Acetaminophen 5/325 mg Tablet PO SCH ×2 (06:06→15:42)
[2020-07-25] MEDS ORDERED: Allopurinol 100 MG TAB PO SCH (09:00)
[2020-07-25] MEDS: Calcium Carbonate 600 MG + Vit D TAB PO SCH (10:11)
[2020-07-25] MEDS: Apixaban 5 MG TAB PO SCH (10:12)
[2020-07-25] MEDS: Cholecalciferol 1,000 UNITS (25 MCG) TAB PO SCH (10:12)
[2020-07-25] MEDS: Aripiprazole 2 MG TAB PO SCH (10:12)
[2020-07-25] MEDS: Furosemide 20 MG TAB PO SCH (10:12)
[2020-07-25] MEDS: Ferrous Sulfate 325 MG TAB PO SCH (10:13)
[2020-07-25] MEDS: Amlodipine 5 MG TAB PO SCH (10:13)
[2020-07-25] MEDS: methylPREDNISolone Sod Succ 40 MG VIAL IVP SCH (10:14)
[2020-07-25] MEDS: Polyethylene Glycol 3350 17 GM Packet PO PRN (15:43)
[2020-07-25 16:06] VITALS: BP 155/86; TEMP 97.5
== END 2020-07-25 16:43 | DRG 299 ==
LOC: ERS 15:50 → 2NO 18:14
PROVIDERS: ADMIT Internal Medicine; ATTEND Family Medicine
DX: I82.411 Acute embolism and thrombosis of right femoral vein (principal); I50.33 Acute on chronic diastolic (congestive) heart failure; G93.41 Metabolic encephalopathy; I13.0 Hypertensive heart and chronic kidney disease with heart failure and stage 1 through stage 4 chronic kidney disease, or unspecified chronic kidney disease; N17.9 Acute kidney failure, unspecified; N18.4 Chronic kidney disease, stage 4 (severe); L03.116 Cellulitis of left lower limb; L03.115 Cellulitis of right lower limb; E87.3 Alkalosis; L97.829 Non-pressure chronic ulcer of other part of left lower leg with unspecified severity; L97.819 Non-pressure chronic ulcer of other part of right lower leg with unspecified severity; Z20.822 Contact with and (suspected) exposure to COVID-19; I25.10 Atherosclerotic heart disease of native coronary artery without angina pectoris; K21.9 Gastro-esophageal reflux disease without esophagitis; I48.91 Unspecified atrial fibrillation; D63.1 Anemia in chronic kidney disease; M19.90 Unspecified osteoarthritis, unspecified site; M41.9 Scoliosis, unspecified; F32.9 Major depressive disorder, single episode, unspecified; E78.5 Hyperlipidemia, unspecified; Z96.641 Presence of right artificial hip joint; L97.529 Non-pressure chronic ulcer of other part of left foot with unspecified severity; L97.519 Non-pressure chronic ulcer of other part of right foot with unspecified severity; I87.8 Other specified disorders of veins; M10.9 Gout, unspecified; R19.5 Other fecal abnormalities; Z90.49 Acquired absence of other specified parts of digestive tract; Z90.5 Acquired absence of kidney; Z79.899 Other long term (current) drug therapy; Z79.52 Long term (current) use of systemic steroids; Z86.73 Personal history of transient ischemic attack (TIA), and cerebral infarction without residual deficits; Z82.49 Family history of ischemic heart disease and other diseases of the circulatory system; Z83.2 Family history of diseases of the blood and blood-forming organs and certain disorders involving the immune mechanism; Z80.9 Family history of malignant neoplasm, unspecified
CPT/HCPCS: 36415; 71045; 80048; 80053; 80202; 82274; 82728; 83540; 83550; 83735; 83880; 84443; 84484; 84550; 85007; 85025; 85027; 85610; 85652; 85730; 86140; 87040; 93306; 93970; 96365; 96366; 96372; 96375; J0360; J0692; J1650; J1940; J2270; J2920; J3370; J3490; J7512; U0002; U0005